=== PATIENT | female | born 1990 | race Caucasian/White ===

== ENCOUNTER 2016-11-21 07:04 | Inpatient (IN) ==
[2016-11-21] MEDS ORDERED: *HR* Morphine 2 MG/ML SYRINGE IVP ONE ×2 (07:25→09:30)
[2016-11-21] MEDS ORDERED: Ondansetron 4 MG/2 ML VIAL IVP ONE (07:25)
[2016-11-21] MEDS ORDERED: 0.9 % Sodium Chloride 1,000 ML IVC ONE (07:25)
[2016-11-21] MEDS ORDERED: Ketorolac 30 MG/ML VIAL IVP ONE (07:25)
--- NOTE | 2016-11-21 07:31 | Emergency Department Note ---
Disposition Clinical Impression: Hx of intravenous drug use in remission, Bilateral pneumonia, Pleural effusion , Back pain Disposition: Admitted As Inpatient Condition: Fair Time of Disposition: 12:22 Abdominal Pain HPI - General Chief Complaint: ED Abdominal Pain Stated Complaint: RUQ Pain x3days Time Seen by Provider: 11/21/16 07:20 Source: patient, family Mode of arrival: ambulatory Limitations: no limitations Nursing Notes Reviewed: Yes Vital Signs Reviewed: Yes - History of Present Illness HPI Narrative: Patient is a 26-year-old white female, heroin addict, who presents to the emergency department with a reported 3 day history of constant sharp right flank pain which radiates around to her right abdomen, radiating level of pain as a 10 out of 10 currently. Patient's pain appears very colicky she is restless and having difficulty finding comfortable position in bed. Patient states she has had associated nausea and vomiting with this. Patient reports subjective fever and chills at home although has not taken her temperature. Patient denies any urinary symptoms no dysuria no increased frequency or urgency no hematuria or dark appearing urine. Patient does state that she has had a history of prior kidney stones, last passed a couple years ago. Patient is holding her right flank area and actually yelling out in pain on my initial assessment. Patient appears clinically dry dry lips and mucous membranes. Patient denies any bowel changes no bright red blood per rectum or tarry black stools. Patient does have track phillip in his mouth cutaneous abscess located in the left antecubital area from her heroin use. Patient states she last used 3 days ago. She denies any history of falls or trauma. Pt Subjective Complaint: abdominal pain, flank pain Onset (ago): day(s) (3) Consistency: constant Location: RUQ, RLQ, epigastric, suprapubic, R flank Pain Severity: severe Pain Scale: 10 Quality: stabbing, sharp Improves with: nothing - Related Data Home Medications Medication Instructions Recorded Confirmed No Known Home Drugs 11/21/16 11/21/16 Allergies Allergy/AdvReac Type Severity Reaction Status Date / Time No Known Allergies Allergy Verified 11/21/16 12:40 All systems ED: reviewed and negative except as stated. Constitutional: Reports: as per HPI, fever, chills Eyes: Reports: as per HPI ENT ED: Reports: as per HPI Cardiovascular: Denies: chest pain, dyspnea on exertion, orthopnea, syncope Respiratory: Denies: cough, dyspnea, hemoptysis Gastrointestinal: Reports: abdominal pain, nausea, vomiting. Denies: diarrhea, constipation, hematemesis, melena, hematochezia Genitourinary: Denies: urgency, dysuria, frequency, hematuria, discharge, abnormal menses Musculoskeletal: Reports: back pain. Denies: neck pain, arthralgia, myalgia Integumentary: Denies: rash, lesions Neurological: Denies: headache, weakness, numbness, paresthesias Endocrine: Denies: fatigue Hematological/Lymphatic: Denies: easy bleeding, easy bruising Allergic/Immunologic: Denies: urticaria Abdominal Pain PMH - Past Medical History Medical history: Reports: other (heroin abuse) Female Surgical History: Reports: no surgical history [employer] MANAGER history: Reports: no [employer] MANAGER history, other Psychiatric history: Reports: anxiety, depression - Social History Smoking status: Never smoker Alcohol use: Reports: none Drug use: Reports: IVDU Physical Exam - General Limitations: no limitations General appearance: alert, in distress, other (Patient appears uncomfortable with writhing and difficulty finding a comfortable position.) - Head Head exam: atraumatic, normocephalic - Eye Eye exam: Present: normal appearance, PERRL, EOMI - ENT ENT exam: normal oropharynx, mucous membranes dry, TM's normal bilaterally - Neck Neck exam: Present: full ROM. Absent: lymphadenopathy - Chest Chest inspection: Present: normal inspection - Respiratory Respiratory exam: Present: normal lung sounds bilaterally. Absent: wheezes, stridor - Cardiovascular Cardiovascular exam: Present: normal rhythm, tachycardia, normal heart sounds. Absent: regular rate - Abdominal Exam Abdominal exam: Present: soft, tenderness, normal bowel sounds. Absent: distention, guarding, rebound, rigidity Abdominal tenderness: Present: RUQ, RLQ, epigastrium, suprapubic - Rectal Exam Reproducer present during exam: No Rectal exam: Present: deferred - Extremities Exam Extremities exam: Present: normal inspection, full ROM - Back Exam Back exam: Present: normal inspection, CVA tenderness (R). Absent: CVA tenderness (L), paraspinal tenderness, vertebral tenderness - Neurological Exam Neurological exam: Present: alert, oriented X3, CN II-XII intact, normal gait. Absent: motor sensory deficit - Psychiatric Psychiatric exam: Present: normal affect, agitated - Skin Skin exam: Present: warm, dry (Patient with numerous track phillip and punctate cutaneous abscesses secondary to IV heroin use.) Course Course Narrative: This 26-year-old white female with history of heroin abuse, no other medical problems reported besides a remote history of kidney stones. Patient complaining of intense severe 10 out of 10 right flank pain radiating around to the right upper and lower quadrants of her abdomen. Patient denies any associated urinary symptoms no bowel changes. Patient had associated nausea and vomiting. Patient complains of subjective fevers and chills over the last 2 -3 days. At this point in time patient is having an IV established placed on monitor technician will be started on IV fluids pain meds and antiemetics for pain relief. For proceeding with full lab evaluation and care including urinalysis and test. Clinically suspect possible right renal colic secondary to kidney stone versus pyelonephritis. We will continue to observe closely. - Reevaluation(s) Reevaluation #1: Patient resting more comfortably at this time remains with a mild tachycardia. Otherwise vital signs are stable pulse ox 98% on room air. Upon review of results up to this point patient has a leukocytosis with left shift of 23,000. Urine shows trace leuks but otherwise within normal limits and some ketones. Remainder of her labs are unremarkable at this time. Patient initially sent for CT abdomen and pelvis to rule out kidney stone versus pyelonephritis considering right flank pain. CT imaging interviewed by radiology shows no evidence of pyelonephritis or kidney stone. Patient does have what appears to be a bilateral pneumonia with hilar adenopathy and questionable mass as well as pleural effusion in the right base. I went and reevaluated the patient she is resting comfortably at this time no longer having colicky pain, although does still complain of pain at the right flank right lung base area of her chest wall. Patient states when asked about any fevers or cough your upper respiratory symptoms, she states that she has not been coughing that she spelled gradually worsening shortness of breath and pain with deep breathing over the last 3 days associated with this pain she has been having. Patient denies any productive cough. We will proceed with CT of the chest with contrast for further evaluation of abnormal findings of the chest base, and I will also have the nurses obtained blood cultures and initiate IV antibiotics prior to CT. Reevaluation #2: Patient remains hemodynamically stable with stable blood pressure and no sign of respiratory distress with oxygen saturations at 98% on room air. CT shows patchy multifocal pneumonia with the most consolidation visualized in the right lower lobe and lingula. Patient also has pleural effusions right greater than left. Have initiated IV antibiotics and will admit the patient for multifocal pneumonia. Vital Signs Temperature 98.7 F 11/21/16 07:05 Pulse Rate 124 11/21/16 07:05 Respiratory Rate 20 11/21/16 07:05 Blood Pressure 109/64 11/21/16 07:05 O2 Sat by Pulse Oximetry 96 11/21/16 07:05 Temperature 98.7 F 11/21/16 07:05 Pulse Rate 120 11/21/16 12:49 Respiratory Rate 16 11/21/16 13:29 Blood Pressure 119/81 11/21/16 13:29 O2 Sat by Pulse Oximetry 96 11/21/16 12:49 Oxygen Delivery Oxygen Delivery Room Air Abdominal Pain - MDM Narrative Medical decision making narrative: Patient is a 26-year-old white female with a history of IV drug abuse, who presented to the emergency department originally with complaints of severe right -sided flank pain radiating around to her right upper quadrant associated with reported fevers at home with chills, nausea and vomiting with a prior history of kidney stones. Patient was tachycardic on arrival but stable blood pressure and no signs of respiratory distress. Patient was maintained on a monitor technician continuous pulse ox IV saline well was established and IV fluids were initiated patient's labs were drawn and sent urine was obtained and patient was sent for CT do not study. Patient's labs show significant leukocytosis with left shift, otherwise H&H is stable. Urinalysis showed small leuks but no nitrates, no finding for urinary tract infection. CT scanning and it up showing moderate right pleural effusion with multifocal bibasilar consolidation questionable mass from what they could see on the abdominal pelvis CT. Patient remained tachycardic despite IV fluid administration and continues to complain of significant right sided back pain with deep breathing. Due to symptoms and ongoing tachycardia patient had continued IV fluids, blood cultures and antibiotics initiated and was sent for CT to rule out PE and better evaluate pneumonia and pleural effusions. She has remained with a stable blood pressure throughout her ED course and no signs of respiratory distress at a time during her ED care. IV antibiotics are infusing. CT was negative for PE but does show a bilateral pneumonia with bilateral pleural effusions, right greater than left. Due to patient's ongoing pain, nausea and vomiting we will admit her for further evaluation, IV antibiotics and respiratory management. Abdomen/Pelvis CT 11/21/16 08:44 IMPRESSION: No acute noncontrast abnormality of the abdomen or pelvis. Moderate right pleural effusion with multifocal bibasilar consolidation, some which is masslike. There is also moderate right hilar and mediastinal adenopathy. The findings are most suggestive of pneumonia most compatible with pneumonia. Follow-up to complete resolution is recommended to exclude the possibility of neoplasm. D/ / Karen Quezada Cha, MD / Karen Quezada Cha, MD Interpreting Provider: Karen Quezada Cha, MD Chest CT 11/21/16 09:59 IMPRESSION: Trace left and moderate right pleural effusion as above with multifocal bilateral patchy airspace disease with areas of consolidation within the right lower lobe and lingula. Findings are most compatible with pneumonia. Follow-up to resolution is recommended. Mediastinal and bilateral hilar adenopathy, likely reactive. Again, follow-up is recommended. D/ / Karen Quezada Cha, MD / Karen Quezada Cha, MD Interpreting Provider: Karen Quezada Cha, MD - Medical Records Medical records reviewed: Yes I reviewed the patient's medical records. - Lab Data Lab results reviewed: Yes I reviewed the patient's lab results. 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 # 0.2 (0.0-1.3) K/mcL Platelet Estimate Normal (Normal) Sodium 132 L (136-145) mEq/L Potassium 4.1 (3.5-4.5) mEq/L Chloride 96 L (98-109) mEq/L Carbon Dioxide 27 (19-29) mEq/L BUN 14 (7-20) mg/dL Creatinine 0.83 (0.57-1.11) mg/dL Est GFR ( Amer) > 60 (> 60) Est GFR (Non-Af Amer) > 60 (> 60) BUN/Creatinine Ratio 17 (6-26) Glucose 141 H (70-99) mg/dL Calculated Osmolality 277 L (280-300) Lactic Acid (0.5-2.2) mmol/L Calcium 10.2 (8.6-10.8) mg/dL Total Bilirubin 1.1 (0.2-1.2) mg/dL Direct Bilirubin 0.7 H (0.0-0.5) mg/dL Indirect Bilirubin 0.4 (0.0-1.2) mg/dL AST 14 (5-34) Units/L ALT 10 (0-55) Units/L Alkaline Phosphatase 88 (38-126) Units/L Serum Total Protein 8.0 (6.0-8.3) g/dL Albumin 2.9 L (3.5-5.0) g/dL Globulin 5.1 H (2.4-3.5) g/dL Albumin/Globulin Ratio 0.6 L (1.1-2.2) Lipase < 4 L (8-78) Units/L Beta HCG, Quant < 1 (0-4) mIU/ml Urine Color Marion A (Yellow) Urine Clarity Cloudy A (Clear) Urine pH 6.0 (5.0-8.0) pH Units Ur Specific [place] > 1.030 H (1.010-1.025) Urine Protein 100 H (Neg-Trace) mg/dL Urine Glucose (UA) Normal (Normal) mg/dL Urine Ketones Trace H (Negative) mg/dL Urine Blood Negative (Negative) Urine Nitrite Negative (Negative) Urine Bilirubin Small H (Negative) Urine Urobilinogen Normal (Normal) mg/dL Ur Leukocyte Esterase Moderate H (Negative) Urine Microscopic RBC 0-3 (0-3) per hpf Urine Microscopic WBC 50-100 H (0-3) per hpf Ur Squamous Epith Cells Many H (None-Few) per lpf Urine Bacteria Few (None-Few) per hpf Hyaline Casts Test Not Performed Urine Mucus Many H (Few) Urine Yeast Test Not Performed Ur Culture Indicated? YES A (NO) 11/21/16 Range/Units 11:04 WBC (4.3-11.1) K/mcL RBC (3.82-4.97) M/mcL Hgb (11.5-15.4) g/dL Hct (35.3-44.9) % MCV (83.0-100.0) fL MCH (28.0-33.3) pg MCHC (31.6-35.5) g/dL RDW (11.5-14.5) % Plt Count (140-400) K/mcL MPV (9.4-12.4) fL Seg Neutrophils % % Band Neutrophils % (0-4) % Lymphocytes % Monocytes % % Neutrophils # (1.6-8.9) K/mcL Lymphocytes # Monocytes # (0.0-1.3) K/mcL Platelet Estimate (Normal) Sodium (136-145) mEq/L Potassium (3.5-4.5) mEq/L Chloride (98-109) mEq/L Carbon Dioxide (19-29) mEq/L BUN (7-20) mg/dL Creatinine (0.57-1.11) mg/dL Est GFR ( Amer) (> 60) Est GFR (Non-Af Amer) (> 60) BUN/Creatinine Ratio (6-26) Glucose (70-99) mg/dL Calculated Osmolality (280-300) Lactic Acid 1.0 (0.5-2.2) mmol/L Calcium (8.6-10.8) mg/dL Total Bilirubin (0.2-1.2) mg/dL Direct Bilirubin (0.0-0.5) mg/dL Indirect Bilirubin (0.0-1.2) mg/dL AST (5-34) Units/L ALT (0-55) Units/L Alkaline Phosphatase (38-126) Units/L Serum Total Protein (6.0-8.3) g/dL Albumin (3.5-5.0) g/dL Globulin (2.4-3.5) g/dL Albumin/Globulin Ratio (1.1-2.2) Lipase (8-78) Units/L Beta HCG, Quant (0-4) mIU/ml Urine Color (Yellow) Urine Clarity (Clear) Urine pH (5.0-8.0) pH Units Ur Specific [place] (1.010-1.025) Urine Protein (Neg-Trace) mg/dL Urine Glucose (UA) (Normal) mg/dL Urine Ketones (Negative) mg/dL Urine Blood (Negative) Urine Nitrite (Negative) Urine Bilirubin (Negative) Urine Urobilinogen (Normal) mg/dL Ur Leukocyte Esterase (Negative) Urine Microscopic RBC (0-3) per hpf Urine Microscopic WBC (0-3) per hpf Ur Squamous Epith Cells (None-Few) per lpf Urine Bacteria (None-Few) per hpf Hyaline Casts Urine Mucus (Few) Urine Yeast Ur Culture Indicated? (NO) - Radiology Data Radiology results reviewed: Yes I reviewed the patient's radiology results.
[2016-11-21 07:50] LABS: Hematocrit 34.9 % (35.3-44.9); Mean Corpuscular HGB Conc 31.5 g/dL (31.6-35.5); Mean Corpuscular Hemoglobin 24.9 pg (28.0-33.3); Mean Platelet Volume 8.8 fL (9.4-12.4); Platelet Count 315 K/mcL (140-400); Red Blood Count 4.42 M/mcL (3.82-4.97); Red Cell Distribution Width 14.3 % (11.5-14.5)
[2016-11-21 08:01] LABS: Alanine Aminotransferase 10 Units/L (0-55); Albumin 2.9 g/dL (3.5-5.0); Albumin/Globulin Ratio 0.6 (1.1-2.2); Alkaline Phosphatase 88 Units/L (38-126); Aspartate Amino Transferase 14 Units/L (5-34); BUN/Creatinine Ratio 17 (6-26); Bilirubin,Direct 0.7 mg/dL (0.0-0.5); Bilirubin,Indirect 0.4 mg/dL (0.0-1.2); Bilirubin,Total 1.1 mg/dL (0.2-1.2); Blood Urea Nitrogen 14 mg/dL (7-20); Calcium 10.2 mg/dL (8.6-10.8); Carbon Dioxide 27 mEq/L (19-29); Chloride 96 mEq/L (98-109); Globulin 5.1 g/dL (2.4-3.5); Glucose 141 mg/dL (70-99); Lipase < 4 Units/L (8-78); Osmolality,Calculated 277 (280-300); Potassium 4.1 mEq/L (3.5-4.5); Sodium 132 mEq/L (136-145); eGFR For African Americans > 60 (> 60); eGFR For Non-African Americans > 60 (> 60)
[2016-11-21 08:19] LABS: Monocytes # 0.2 K/mcL (0.0-1.3); Neutrophils # 23.1 K/mcL (1.6-8.9); Platelet Estimate Normal (Normal)
[2016-11-21 09:45] LABS: Bilirubin,Urine Small (Negative); Blood,Urine Negative (Negative); Clarity,Urine Cloudy (Clear); Color,Urine Orange (Yellow); Glucose,Urine (UA) Normal (Normal); Ketones,Urine Trace mg/dL (Negative); Leukocyte Esterase,Urine Moderate (Negative); Nitrite,Urine Negative (Negative); Protein,Urine 100 mg/dL (Neg-Trace); Specific Gravity,Urine > 1.030 (1.010-1.025); Urobilinogen,Urine Normal (Normal)
[2016-11-21 09:49] LABS: Bacteria,Urine Few per hpf (None-Few); RBC,Urine 0-3 per hpf (0-3); Squamous Epithelial Cell,Urine Many per lpf (None-Few); WBC,Urine 50-100 per hpf (0-3)
[2016-11-21] MEDS ORDERED: Azithromycin 500 MG in D5% in Water 250 ML IVPB ONE (10:00)
[2016-11-21] MEDS ORDERED: Vancomycin 1,000 MG in D5% in Water 250 ML IVPB ONE (10:01)
[2016-11-21 10:13] LABS: Mucus,Urine Many (Few)
--- NOTE | 2016-11-21 12:46 | Internal Med History&Physical ---
Date of Encounter: 11/21/16 Time of Encounter: 12:43 Internal Medicine - H&P: HPI Chief complaint: flank pain Admitted From: Home Plans for Post Hospital Care: Home History of present illness: Ms. Montez is a 26 year old female , heroin addict, who presents to the emergency department with a reported 3 day history of constant sharp right flank pain which radiates around to her right abdomen, radiating level of pain as a 10 out of 10. Patient states she has had associated nausea and vomiting with this. Patient reports subjective fever and chills at home although has not taken her temperature. Patient denies any urinary symptoms no dysuria no increased frequency or urgency no hematuria or dark appearing urine. Patient does state that she has had a history of prior kidney stones, last passed a couple years ago. Patient denies any bowel changes no bright red blood per rectum or tarry black stools. Patient states she last used 3 days ago. She denies any history of falls or trauma. Past Med Surg Social Fam HX - Past Medical History Medical history: other (heroin abuse) Psychiatric history: anxiety, depression - Past Surgical History Surgical History: no surgical history - Social History Smoking Status: Never smoker Smokeless Tobacco Status: No Alcohol use: none Drug use: IVDU - Family History Maternal Grandfather Hx Family Cancer: Yes (pancreatic) Internal Medicine - H&P: Meds No Known Home Drugs 11/21/16 [History] Allergies No Known Allergies Allergy (Verified 11/21/16 12:40) All Systems PM: A 10-system review of systems was performed and is negative for pertinent findings except as documented above in the HPI. - Constitutional Vitals: Temp Pulse Resp BP Pulse Ox 98.7 F 115 18 109/51 98 11/21/16 07:05 11/21/16 11:49 11/21/16 11:49 11/21/16 11:49 11/21/16 11:49 Internal Med - H&P Results - Labs CBC & Chem 7: 11/21/16 07:35 11/21/16 07:35
[2016-11-21] MEDS ORDERED: *HR* HYDROmorphone 20 MG/20 ML PCA IVC PRN (13:52)
[2016-11-21] MEDS ORDERED: Naloxone 0.4 MG/ML INJ IVP PRN (13:52)
[2016-11-21] MEDS ORDERED: Ondansetron 4 MG/2 ML VIAL IVP PRN (13:52)
[2016-11-21] MEDS ORDERED: *HR* HYDROmorphone (PF) 1 MG/ML SYRINGE IVP ONE (13:52)
[2016-11-21] MEDS ORDERED: Sennosides 8.6 MG TABLET PO PRN (13:52)
--- NOTE | 2016-11-21 14:21 | Internal Med History&Physical ---
<Amy Miranda - Last Filed: 11/21/16 15:05> Date of Encounter: 11/21/16 Time of Encounter: 14:19 Assessment and Plan (1) Sepsis Current visit: Yes Status: Acute Patient is tachycardic, tachypneic, and has a white blood cell count 23 Qualifiers: Sepsis type: sepsis due to unspecified organism Qualified Code(s): A41.9 - Sepsis, unspecified organism (2) Bilateral pneumonia Current visit: Yes Status: Acute right lower lobe and lingula respiratory infection panel Zosyn, Levaquin, and vancomycin Duonebs q6H JAX Patient is clinically very dry. 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 Montez is a 26 year old female, known IV heroin user, who presents to the emergency department with a one-week history of right sided chest/right upper quadrant/back pain. She states this pain is a 10 out of 10. She states that she had a cough 5 days ago but it went away and then this pain came which was so severe that she laid in bed for 3 days not doing anything because of the pain. Pain is made worse by taking a deep breath or movement. She has been nauseous and been throwing up, states she has not been able to keep anything down for 3 days. Minimal fluids have been kept down. She states that she will wake up screaming in pain like she was going through withdrawals but states that she was not going through withdrawals. She also states that she woke up drenched in sweat. Past medical history of pyelonephritis, does not take any medications on a daily basis. Tachycardic and tachypneic upon arrival to the ED. White blood cell count of 23.3, she is clinically dry. Chest CT shows multifocal bilateral patchy airspace disease with areas of consolidation within the right lower lobe and lingula with trace left and moderate right pleural effusion. Also mediastinal and bilateral hilar adenopathy, likely reactive. CT of abdomen/pelvis normal. Patient states last used IV heroin 2 days ago. Past Med Surg Social Fam HX - Past Medical History Medical history: other (heroin abuse) Psychiatric history: anxiety, depression - Past Surgical History Surgical History: no surgical history - Social History Smoking Status: Never smoker Smokeless Tobacco Status: No Alcohol use: none Drug use: IVDU - Family History Maternal Grandfather Hx Family Cancer: Yes (pancreatic) Internal Medicine - H&P: Meds No Known Home Drugs 11/21/16 [History] Allergies No Known Allergies Allergy (Verified 11/21/16 12:40) All Systems PM: A 10-system review of systems was performed and is negative for pertinent findings except as documented above in the HPI. - Constitutional Constitutional: anorexia, excessive sweating, night sweats, no chills, no weakness - EENT Eyes: blurry vision (Only when pain is very severe) Ears: no ear pain Nose, mouth and throat: no sore throat - Cardiovascular Cardiovascular ROS IM: chest pain, diaphoresis, dyspnea - Respiratory Respiratory: dyspnea, pain on inspiration - Gastrointestinal Gastrointestinal: nausea, vomiting, no diarrhea - Genitourinary Genitourinary: no dysuria, no urinary frequency, no urinary hesitancy, no urinary urgency - Musculoskeletal Musculoskeletal ROS IM: back pain, other (Leg pain) - Integumentary Integumentary IM: no rash - Neurological Neurological ROS: no numbness, no weakness - Constitutional Vitals: Temp Pulse Resp BP Pulse Ox 98.7 F 120 16 119/81 96 11/21/16 07:05 11/21/16 12:49 11/21/16 13:29 11/21/16 13:29 11/21/16 12:49 General appearance: Present: mild distress, A&O X 3, answers questions appropriately - Head Head exam: Present: atraumatic, normocephalic Additional comments: Flushing of cheeks - Eye Eye exam: Present: PERRL, conjuntiva pink, sclera anicteric Pupils: Present: PERRL - ENT ENT exam: Present: mucous membranes dry - Neck Neck exam general surgery: Present: supple - Respiratory Respiratory exam: Present: decreased breath sounds (Due to patient effort), tachypnea - Cardiovascular Cardiovascular exam: Present: RRR, +S1, +S2, tachycardia - GI/Abdominal GI/Abdominal exam: Present: soft, no peritoneal signs. Absent: tenderness - Extremities Exam Extremities exam: Present: warm. Absent: pedal edema, tenderness - Neurological Exam Neurological exam: Present: alert, CN II-XII intact, oriented X3, no focal deficits - Skin Additional comments: tract kartik in L antecubital, flushed cheeks and chest Internal Med - H&P Results - Labs CBC & Chem 7: 11/21/16 07:35 11/21/16 07:35 <Sohail Davis - Last Filed: 11/21/16 15:35> Date of Encounter: 11/21/16 Assessment and Plan (1) Bilateral pneumonia Current visit: Yes Status: Suspected Qualifiers: Pneumonia type: due to Pneumococcus Lung location: lower lobe of lung Qualified Code(s): J13 - Pneumonia due to Streptococcus pneumoniae (2) Pleural effusion Current visit: Yes Status: Acute (3) Sepsis Current visit: Yes Status: Acute Qualifiers: Sepsis type: sepsis due to unspecified organism Qualified Code(s): A41.9 - Sepsis, unspecified organism (4) IV drug user Current visit: Yes Status: Chronic (5) Heroin abuse Current visit: Yes Status: Chronic Pain control and withdrawal management. Internal Medicine - H&P: HPI History of present illness: Ms. Montez is a 26 year old female All Systems PM: A 10-system review of systems was performed and is negative for pertinent findings except as documented above in the HPI. - Constitutional Vitals: Temp Pulse Resp BP Pulse Ox 98.9 F 134 16 104/69 95 11/21/16 14:21 11/21/16 14:21 11/21/16 14:21 11/21/16 14:21 11/21/16 14:21 Internal Med - H&P Results - Labs CBC & Chem 7: 11/21/16 07:35 11/21/16 07:35 - Attending Attestation I examined this patient and my medical decision-making was reviewed with the Resident Physician on 11/21/16. I agree with the documented findings, disposition and treatment plan as described except to the extent set forth below. Ms. Montez is 26 y/o heroin user presented to ED with 3 day history of R side pain. Pain came on suddenly and as been associated with dyspnea and tachycardia. Pt stated she has had fever (not documented) and night sweats. No prior hx of pulmonary issues. No cardiac issues. Only history is a previous pyelonephritis. Exam Alert. Restless and in distress from pain Mucus membranes dry Heart tachy and regular Lungs diminished R base. No wheeze. Abd soft and nontender No edema I/P 1. Sepsis due to pneumonia - differential includes PE and other processes (i.e lymphoma). IV abx and supportive care 2. Heroin user Further diagnoses and plan as above.
[2016-11-21] MEDS ORDERED: Ipratropium/Albuterol Neb 3 ML IH SCH (16:00)
[2016-11-21] MEDS: Piperacillin/Tazobactam 3.375 GM in D5% in Water (Mini-Bag+) 100 ML IVPB SCH ×2 (16:13→16:14)
[2016-11-21] MEDS: Vancomycin 1,000 MG in D5% in Water 250 ML IVPB SCH (16:22)
[2016-11-21] MEDS: 0.9 % Sodium Chloride 1,000 ML IVC SCH (17:26)
[2016-11-21] MEDS: Ketorolac 30 MG/ML VIAL IVP PRN (17:30)
[2016-11-21] MEDS: Ipratropium/Albuterol Neb 3 ML IH SCH ×2 (17:40→21:10)
[2016-11-21] MEDS ORDERED: Vancomycin 1,000 MG in D5% in Water 250 ML IVPB SCH (18:00)
[2016-11-21] MEDS: Levofloxacin 750 MG/150 ML 750 MG/150 ML BAG IVPB SCH (21:48)
[2016-11-21] MEDS: GuaiFENesin/Codeine Oral Soln 5 ML UDC PO PRN (21:48)
[2016-11-22] MEDS: Vancomycin 1,000 MG in D5% in Water 250 ML IVPB SCH ×2 (00:43→15:22)
[2016-11-22] MEDS: Piperacillin/Tazobactam 3.375 GM in D5% in Water (Mini-Bag+) 100 ML IVPB SCH ×3 (02:39→18:28)
[2016-11-22] MEDS: 0.9 % Sodium Chloride 1,000 ML IVC SCH ×3 (02:40→21:20)
[2016-11-22 04:31] LABS: Hematocrit 30.3 % (35.3-44.9); Hemoglobin 9.5 g/dL (11.5-15.4); Mean Corpuscular HGB Conc 31.4 g/dL (31.6-35.5); Mean Corpuscular Volume 79.7 fL (83.0-100.0); Mean Platelet Volume 9.5 fL (9.4-12.4); Monocytes # 1.1 K/mcL (0.0-1.3); Platelet Count 280 K/mcL (140-400); Red Cell Distribution Width 14.4 % (11.5-14.5)
[2016-11-22 04:50] LABS: Alanine Aminotransferase 8 Units/L (0-55); Albumin/Globulin Ratio 0.5 (1.1-2.2); Alkaline Phosphatase 70 Units/L (38-126); Aspartate Amino Transferase 12 Units/L (5-34); BUN/Creatinine Ratio 18 (6-26); Bilirubin,Total 0.6 mg/dL (0.2-1.2); Blood Urea Nitrogen 15 mg/dL (7-20); Carbon Dioxide 22 mEq/L (19-29); Chloride 99 mEq/L (98-109); Globulin 4.1 g/dL (2.4-3.5); Glucose 117 mg/dL (70-99); Magnesium 1.4 mg/dL (1.6-2.6); Osmolality,Calculated 270 (280-300); Phosphorous 1.4 mg/dL (2.3-4.7); Potassium 3.7 mEq/L (3.5-4.5); Sodium 129 mEq/L (136-145); eGFR For African Americans > 60 (> 60); eGFR For Non-African Americans > 60 (> 60)
[2016-11-22 04:52] LABS: Calcium 8.3 mg/dL (8.6-10.8); Total Protein 6.1 g/dL (6.0-8.3)
[2016-11-22] MEDS ORDERED: Ipratropium/Albuterol Neb 3 ML IH STA (05:01)
[2016-11-22 05:02] LABS: Lymphocytes # 0.7 K/mcL (0.6-4.6); Neutrophils # 16.2 K/mcL (1.6-8.9); Platelet Estimate Normal (Normal)
[2016-11-22 05:09] LABS: Amphetamine Screen,Urine Positive ng/mL (Cutoff=1000); Barbiturate Screen,Urine Negative ng/mL (Cutoff=200); Benzodiazepines Screen,Urine Positive ng/mL (Cutoff=200); Cannabinoid Screen,Urine Negative ng/mL (Cutoff = 50); Cocaine Screen,Urine Positive ng/mL (Cutoff= 300); Opiate Screen,Urine Positive ng/mL (Cutoff=300); Phencyclidine Screen,Urine Negative ng/mL (Cutoff=25)
[2016-11-22] MEDS ORDERED: Calcium Gluconate 1,000 MG in D5% in Water 100 ML IVPB STA (05:09)
[2016-11-22] MEDS ORDERED: Sodium Phosphate 30 MMOL in D5% in Water 100 ML IVPB ONE (05:09)
[2016-11-22] MEDS ORDERED: Magnesium Sulfate 2 GM in D5% in Water 100 ML IVPB STA (05:09)
--- NOTE | 2016-11-22 05:15 | Event Note ---
<Todd Ruth - Last Filed: 11/22/16 05:36> Date of Encounter: 11/22/16 Time of Encounter: 05:00 -Received a page that patient is having trouble breathing, oxygen stats are 80% , HR 140's, BP 104/51. -Orders placed including bipap, ABG, replacement of electrolytes, albumin. -Went to assess the patient. Male (boyfriend?) in the bed, laying with the patient. She is fully awake, answering questions appropriately, not SOB, denies CP, non lethargic. Biggest and only complaint is pain medication. 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 -Patient is known heroin addict. Concern that the male in her room might be giving patient drugs. -Patient is stable, not in acute respiratory distress. Was sleeping comfortably early this morning. Plan -Cancelled orders-bipap, ABG, transfer to -Continue with electrolyte replacement <Roney Saucedois - Last Filed: 11/23/16 23:27> Date of Encounter: 11/22/16 My signature below is to certify that this patient is under my care and that I, or the Resident Physician working with me (Dr. Ruth), has had a face-to- face encounter with this patient. My medical decision-making was reviewed with the Resident Physician, Dr. Todd Ruth. Cumulative medical records, laboratory and radiographic database was reviewed, considered and discussed. I agree with the documented findings, disposition and treatment plan as described except to the extent set forth below. Orders written.
[2016-11-22] MEDS: Ipratropium/Albuterol Neb 3 ML IH SCH ×4 (05:54→22:20)
[2016-11-22] MEDS ORDERED: *HR* Enoxaparin 40 MG/0.4 ML SYRINGE SQ SCH (06:00)
[2016-11-22] MEDS: GuaiFENesin/Codeine Oral Soln 5 ML UDC PO PRN ×3 (09:48→18:28)
[2016-11-22] MEDS: Levofloxacin 750 MG/150 ML 750 MG/150 ML BAG IVPB SCH (09:48)
[2016-11-22] MEDS: *HR* HYDROmorphone 20 MG/20 ML PCA IVC PRN ×2 (11:21→15:32)
[2016-11-22] MEDS ORDERED: Levofloxacin 500 MG/100 ML 500 MG/100 ML BAG IVPB SCH (13:00)
--- NOTE | 2016-11-22 13:59 | Internal Med Progress Note ---
<Leigh Harrell - Last Filed: 11/22/16 14:59> Date of Encounter: 11/22/16 - Assessment and plan (1) Sepsis Current Visit: Yes Status: Acute Assessment and plan: Patient has Resp>20, HR>100, fever, hypotensive, elevated white count. Lactate: 1 etiology likely secondary to bilateral pneumonia. CT chest showed trace left and moderate right pleural effusion with multifocal bilateral patchy airspace disease with areas of consolidation within the right lower lobe and lingula, consistent with pneumonia. Mediastinal bilateral hilar adenopathy present as well. Legionella, S.pneumo antigen negative. Plan: IVF Blood cultures x2 pending sputum culture pending urine culture pending. RIP pending EV Echo pending continue empiric antibiotic coverage with vanc, zosyn, levaquin- Day 2. consult to pulmonology. NPO after midnight for possible bronchoscopy. Qualifiers: Sepsis type: sepsis due to unspecified organism Qualified Code(s): A41.9 - Sepsis, unspecified organism (2) Bilateral pneumonia Current Visit: Yes Status: Suspected Assessment and plan: CT chest showed trace left and moderate right pleural effusion with multifocal bilateral patchy airspace disease with areas of consolidation within the right lower lobe and lingula. Findings compatible with pneumonia. There was also bilateral mediastinal and bilateral hilar adenopathy. Plan as above. Qualifiers: Pneumonia type: due to Pneumococcus Lung location: lower lobe of lung Qualified Code(s): J13 - Pneumonia due to Streptococcus pneumoniae (3) Pleural effusion Current Visit: Yes Status: Acute Assessment and plan: Consult to IR for thoracentesis with fluid culture and analysis, check adenosine deaminase. 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 CTA negative for PE. CT abdomen/pelvis showed no acute noncontrast abnormality. Etiology likely secondary to pneumonia and pleural effusions. (5) IV drug user Current Visit: Yes Status: Chronic Assessment and plan: Patient has extensive history of IV drug use, says she uses heroin. UDS psitive for opiates, amphetamines, benzodiazepines, cocaine. patient counseled on risks of IV drug use. Plan: echo pending (6) DVT prophylaxis Current Visit: No Status: Acute Assessment and plan: heparin SQ - Subjective Interval history: 26 year old female evaluated at bedside. patient is alert and oriented x3, in mild distress from pain. She denies nausea, vomiting, diarrhea, chills. SHe says she is very tired, and is having a non productive cough. - Constitutional Vitals: Temp Pulse Resp BP Pulse Ox 100.2 F H 127 32 100/60 97 11/22/16 08:16 11/22/16 08:16 11/22/16 08:16 11/22/16 08:16 11/22/16 08:16 General appearance: Present: mild distress, A&O X 3, answers questions appropriately - Head Head exam: Present: atraumatic, normocephalic - Respiratory Respiratory exam: Present: rales, wheezes - Cardiovascular Cardiovascular exam: Present: tachycardia. Absent: systolic murmur - GI/Abdominal GI/Abdominal exam: Present: normal bowel sounds, soft, tenderness. Absent: distended Additional comments: right flank pain present. - Extremities Exam Extremities exam: Absent: cyanotic, pedal edema - Neurological Exam Neurological exam: Present: alert, oriented X3, no focal deficits - Psychiatric Psychiatric exam: Present: agitated, anxious Internal Medicine: Result - Labs CBC & Chem 7: 11/22/16 03:39 11/22/16 03:39 Labs: Short CBC 11/22/16 Range/Units 03:39 WBC 18.0 H (4.3-11.1) K/mcL Hgb 9.5 L D (11.5-15.4) g/dL Hct 30.3 L (35.3-44.9) % Plt Count 280 (140-400) K/mcL Neutrophils # 16.2 H (1.6-8.9) K/mcL BMP 11/22/16 03:39 Sodium 129 L Potassium 3.7 Chloride 99 Carbon Dioxide 22 BUN 15 Creatinine 0.85 Glucose 117 H Calcium 8.3 L D Liver Function 11/22/16 Range/Units 03:39 Total Bilirubin 0.6 (0.2-1.2) mg/dL AST 12 (5-34) Units/L ALT 8 (0-55) Units/L Alkaline Phosphatase 70 (38-126) Units/L Albumin 2.0 L D (3.5-5.0) g/dL Consult Discharge Plan - Plan Referrals: NO,PCP [Primary Care Provider] - <Sohail Davis - Last Filed: 11/22/16 17:51> Date of Encounter: 11/22/16 Time of Encounter: 15:00 - Assessment and plan (1) Bilateral pneumonia Current Visit: Yes Status: Suspected Qualifiers: Pneumonia type: due to Pneumococcus Lung location: lower lobe of lung Qualified Code(s): J13 - Pneumonia due to Streptococcus pneumoniae (2) Pleural effusion Current Visit: Yes Status: Acute (3) Sepsis Current Visit: Yes Status: Acute Qualifiers: Sepsis type: sepsis due to unspecified organism Qualified Code(s): A41.9 - Sepsis, unspecified organism (4) IV drug user Current Visit: Yes Status: Chronic (5) Heroin abuse Current Visit: Yes Status: Chronic (6) Microcytic anemia Current Visit: No Status: Chronic - Constitutional Vitals: Temp Pulse Resp BP Pulse Ox 97.7 F 112 22 103/60 95 11/22/16 16:25 11/22/16 16:25 11/22/16 16:25 11/22/16 16:25 11/22/16 16:25 Internal Medicine: Result - Labs CBC & Chem 7: 11/22/16 03:39 11/22/16 03:39 Labs: Short CBC 11/22/16 Range/Units 03:39 WBC 18.0 H (4.3-11.1) K/mcL Hgb 9.5 L D (11.5-15.4) g/dL Hct 30.3 L (35.3-44.9) % Plt Count 280 (140-400) K/mcL Neutrophils # 16.2 H (1.6-8.9) K/mcL BMP 11/22/16 11/22/16 03:39 14:12 Sodium 129 L Potassium 3.7 Chloride 99 Carbon Dioxide 22 BUN 15 Creatinine 0.85 Glucose 117 H Calcium 8.3 L D 8.1 L Liver Function 11/22/16 Range/Units 03:39 Total Bilirubin 0.6 (0.2-1.2) mg/dL AST 12 (5-34) Units/L ALT 8 (0-55) Units/L Alkaline Phosphatase 70 (38-126) Units/L Albumin 2.0 L D (3.5-5.0) g/dL - Attending Attestation I examined this patient and my medical decision-making was reviewed with the Resident Physician on 11/22/16. I agree with the documented findings, disposition and treatment plan as described except to the extent set forth below. Ms. Montez is currently admitted for acute pneumonia associated with pain and hypoxemia. She is high risk due to potential for worsening respiratory status. Ms. Montez is still having a lot of pain. She wants more pain meds if possible. She is requiring higher oxygen as well. No fever or chills since admit though she has had night sweats at home. She feels she has lost weight as well. Exam Alert. Moderate distress due to pain. Mucus membranes dry Heart reg and tachycardic Lungs diminished I/P 1. Hypoxemia 2. Pneumonia Further diagnoses and plan as above.
[2016-11-22] MEDS: Ketorolac 30 MG/ML VIAL IVP PRN ×2 (14:18→20:03)
[2016-11-22 14:35] LABS: Calcium 8.1 mg/dL (8.6-10.8); Magnesium 1.7 mg/dL (1.6-2.6)
[2016-11-22 14:38] LABS: Phosphorous 2.3 mg/dL (2.3-4.7)
--- NOTE | 2016-11-22 17:34 | Pulmonology Consult Note ---
Date of Encounter: 11/22/16 Time of Encounter: 16:45 Assessment and Plan (1) Bilateral pneumonia Current Visit: Yes Status: Acute I reviewed CT chest and there is evidence of pneumonia, right more than left and due to her history of IV drug use and this is mainly in right lower lobe, in the differential diagnosis and bronchoscopy recommended to patient and explained to her all the risk, alternatives and benefits of the procedure and she agreed to have it done. Discussed with primary team and thanks for the consult. Keep patient NPO post mid-night for the procedure. Qualifiers: Pneumonia type: due to unspecified organism Lung location: lower lobe of lung Qualified Code(s): J18.9 - Pneumonia, unspecified organism (2) Pleural effusion Current Visit: Yes Status: Acute right larger than left and this is possibly parapneumonic and she declined thoracentesis today. History of Present Illness Consult date: 11/22/16 Requesting physician: Sohail Davis Reason for consult: pneumonia Chief complaint: Right side chest and back pain History of present illness: This is a pleasant 26 year old female with known history of IV drug user who presented to [facility] emergency medicine with above complaint for about one week and she stated she has difficulty to do anything because of the pain. She has cough and chest pain mainly when she takes deep breath. She has sweating and she has difficulty to keep anything down and she has been dehydrated. She denies any previous history of TB and this is all acute. She denies any hemoptysis or wheezing. She was found to have pneumonia and pleural effusion with mediastinal and hilar adenopathy. Pulmonary consulted for evaluation for bronchoscopy. Past Med Surg Social Fam HX - Past Medical History Medical history: other (heroin abuse) Psychiatric history: anxiety, depression - Past Surgical History Surgical History: no surgical history - Social History Smoking Status: Never smoker Smokeless Tobacco Status: No Alcohol use: none Drug use: IVDU - Family History Maternal Grandfather Living Status: Still Living Hx Family Cardiac Disorders: No Hx Family Cancer: Yes (pancreatic) Hx Family Endocrine Disorder: Yes Hx Family Medical Disorders: Yes Medications and Allergies No Known Home Drugs 11/21/16 [History] Allergies No Known Allergies Allergy (Verified 11/21/16 12:40) All Systems: A 10-system review of systems was performed and is negative for pertinent findings except as documented above in the HPI. Physical Examination Vital Signs: Vital Signs, Last 4 Hours Temp Pulse Resp BP Pulse Ox 11/22/16 16:25 97.7 F 112 22 103/60 95 General appearance: lethargic, appears uncomfortable Eyes: nonicteric ENT: oropharynx dry Mallampati (class): 1 Neck: supple, no lymphadenopathy Effort: normal Inspection: normal Auscultation: bilateral: rales Percussion: right: not dull (Tender) Cardiovascular: regular rate and rhythm Gastrointestinal: normoactive bowel sounds Integumentary: rash Extremities: no cyanosis normal mental status, non-focal exam anxious Results - Laboratory Findings CBC and BMP: 11/22/16 03:39 11/22/16 03:39 Abnormal lab findings: Abnormal lab results WBC 18.0 K/mcL (4.3-11.1) H 11/22/16 03:39 RBC 3.80 M/mcL (3.82-4.97) L 11/22/16 03:39 Hgb 9.5 g/dL (11.5-15.4) L D 11/22/16 03:39 Hct 30.3 % (35.3-44.9) L 11/22/16 03:39 MCV 79.7 fL (83.0-100.0) L 11/22/16 03:39 MCH 25.0 pg (28.0-33.3) L 11/22/16 03:39 MCHC 31.4 g/dL (31.6-35.5) L 11/22/16 03:39 Band Neutrophils % 16.0 % (0-4) H 11/22/16 03:39 Neutrophils # 16.2 K/mcL (1.6-8.9) H 11/22/16 03:39 Sodium 129 mEq/L (136-145) L 11/22/16 03:39 Glucose 117 mg/dL (70-99) H 11/22/16 03:39 Calculated Osmolality 270 (280-300) L 11/22/16 03:39 Calcium 8.1 mg/dL (8.6-10.8) L 11/22/16 14:12 Direct Bilirubin 0.7 mg/dL (0.0-0.5) H 11/21/16 07:35 Albumin 2.0 g/dL (3.5-5.0) L D 11/22/16 03:39 Globulin 4.1 g/dL (2.4-3.5) H 11/22/16 03:39 Albumin/Globulin Ratio 0.5 (1.1-2.2) L 11/22/16 03:39 Lipase < 4 Units/L (8-78) L 11/21/16 07:35 Urine Color [place] (Yellow) A 11/21/16 09:03 Urine Clarity Cloudy (Clear) A 11/21/16 09:03 Ur Specific [place] > 1.030 (1.010-1.025) H 11/21/16 09:03 Urine Protein 100 mg/dL (Neg-Trace) H 11/21/16 09:03 Urine Ketones Trace mg/dL (Negative) H 11/21/16 09:03 Urine Bilirubin Small (Negative) H 11/21/16 09:03 Ur Leukocyte Esterase Moderate (Negative) H 11/21/16 09:03 Urine Microscopic WBC 50-100 per hpf (0-3) H 11/21/16 09:03 Ur Squamous Epith Cells Many per lpf (None-Few) H 11/21/16 09:03 Urine Mucus Many (Few) H 11/21/16 09:03 Ur Culture Indicated? YES (NO) A 11/21/16 09:03 Urine Opiates Screen Positive ng/mL (Zhefgt=493) H 11/21/16 09:15 Ur Amphetamines Screen Positive ng/mL (Zonxfj=2993) H 11/21/16 09:15 U Benzodiazepines Scrn Positive ng/mL (Emnpsf=864) H 11/21/16 09:15 Urine Cocaine Screen Positive ng/mL (Cutoff= 300) H 11/21/16 09:15 - Diagnostic Findings CT scan - chest: report reviewed, image reviewed - Clinical Findings Intake & Output: Intake & Output 11/22/16 11/22/16 11/22/16 07:59 15:59 23:59 Intake Total 1350 / 1350 1894 / 1894 Balance 1350 / 1350 1894 / 1894 Weight 63.9 kg Consult Discharge Plan - Plan Referrals: NO,PCP [Primary Care Provider] -
[2016-11-22] MEDS: *HR* Heparin 5,000 UNIT/ML VIAL SQ SCH (18:29)
[2016-11-22 20:28] LABS: INR 1.8; Prothrombin Time 19.4 Seconds (9.4-12.1)
[2016-11-23] MEDS: Piperacillin/Tazobactam 3.375 GM in D5% in Water (Mini-Bag+) 100 ML IVPB SCH ×3 (00:55→17:49)
[2016-11-23] MEDS: GuaiFENesin/Codeine Oral Soln 5 ML UDC PO PRN ×4 (00:56→22:38)
[2016-11-23 01:02] LABS: Ionized Calcium 1.11 mmol/L (1.15-1.35)
[2016-11-23 01:06] LABS: Basophils % 0.1 %; Eosinophils # 0.2 K/mcL (0.0-0.6); Eosinophils % 1.1 %; Hematocrit 28.3 % (35.3-44.9); Hemoglobin 8.8 g/dL (11.5-15.4); Immature Granulocytes % 0.9 % (0-4); Lymphocytes # 0.9 K/mcL (0.6-4.6); Lymphocytes % 6.6 %; Mean Corpuscular HGB Conc 31.1 g/dL (31.6-35.5); Mean Corpuscular Hemoglobin 24.9 pg (28.0-33.3); Mean Corpuscular Volume 79.9 fL (83.0-100.0); Monocytes % 8.2 %; Neutrophils # 11.6 K/mcL (1.6-8.9); Platelet Count 223 K/mcL (140-400); Red Blood Count 3.54 M/mcL (3.82-4.97); Red Cell Distribution Width 14.1 % (11.5-14.5); Segmented Neutrophils % 83.1 %
[2016-11-23 01:10] LABS: Magnesium 1.8 mg/dL (1.6-2.6); Monocytes # 1.2 K/mcL (0.0-1.3)
[2016-11-23 01:12] LABS: Phosphorous 3.7 mg/dL (2.3-4.7)
[2016-11-23 01:13] LABS: Alanine Aminotransferase 6 Units/L (0-55); Albumin/Globulin Ratio 0.5 (1.1-2.2); Alkaline Phosphatase 52 Units/L (38-126); Aspartate Amino Transferase 10 Units/L (5-34); BUN/Creatinine Ratio 12 (6-26); Bilirubin,Total 0.3 mg/dL (0.2-1.2); Blood Urea Nitrogen 8 mg/dL (7-20); Calcium 7.9 mg/dL (8.6-10.8); Carbon Dioxide 23 mEq/L (19-29); Chloride 108 mEq/L (98-109); Globulin 3.7 g/dL (2.4-3.5); Glucose 119 mg/dL (70-99); Osmolality,Calculated 283 (280-300); Potassium 3.6 mEq/L (3.5-4.5); Total Protein 5.6 g/dL (6.0-8.3); eGFR For African Americans > 60 (> 60); eGFR For Non-African Americans > 60 (> 60)
[2016-11-23 01:14] LABS: Albumin 1.9 g/dL (3.5-5.0); Sodium 137 mEq/L (136-145)
[2016-11-23 01:29] LABS: Platelet Estimate Normal (Normal); Reactive Lymphocytes Present (Not Present); Toxic Granulation Present (Not Present); Toxic Vacuolation Present (Not Present)
[2016-11-23] MEDS: Ketorolac 30 MG/ML VIAL IVP PRN ×3 (03:14→16:23)
[2016-11-23] MEDS: Vancomycin 1,000 MG in D5% in Water 250 ML IVPB SCH (03:15)
[2016-11-23] MEDS: Ipratropium/Albuterol Neb 3 ML IH SCH ×4 (04:29→21:44)
[2016-11-23] MEDS: *HR* Heparin 5,000 UNIT/ML VIAL SQ SCH ×2 (06:54→17:49)
[2016-11-23] MEDS ORDERED: Calcium Gluconate 1,000 MG in D5% in Water 100 ML IVPB ONE (08:35)
[2016-11-23] MEDS: Levofloxacin 750 MG/150 ML 750 MG/150 ML BAG IVPB SCH (09:00)
[2016-11-23] MEDS: 0.9 % Sodium Chloride 1,000 ML IVC SCH ×2 (09:01→17:50)
[2016-11-23 09:07] LABS: Adenovirus Not Detected (Not Detect); Bordetella Pertussis Not Detected (Not Detect); Chlamydophila pneumoniae Not Detected (Not Detect); Coronavirus 229E Not Detected (Not Detect); Coronavirus HKU1 Not Detected (Not Detect); Coronavirus NL63 Not Detected (Not Detect); Coronavirus OC43 Not Detected (Not Detect); Human Metapneumovirus Not Detected (Not Detect); Human Rhinovirus/Enterovirus Not Detected (Not Detect); Influenza A Subtype 2009 H1 Not Detected (Not Detect); Influenza A Untypeable Not Detected (Not Detect); Influenza B Not Detected (Not Detect); Mycoplasma pneumoniae Not Detected (Not Detect); Parainfluenza Virus 1 Not Detected (Not Detect); Parainfluenza Virus 2 Not Detected (Not Detect); Parainfluenza Virus 3 Not Detected (Not Detect); Parainfluenza Virus 4 Not Detected (Not Detect); Respiratory Syncytial Virus Not Detected (Not Detect)
--- NOTE | 2016-11-23 10:20 | ECHO - Doppler Report ---
Echocardiogram Name: Zahida Montez Date of Study: 11/22/2016 Date: 1990 Ht: 63.0 in Medical Record#: [id number] Age: 26 Wt: 140.0 lb Gender: Female BSA: 1.66 Order #: [id number] Location: [facility] Room #: 2NE29 Reading Physician: Emre Kearns DO, HARINI YE Operator Lights: Keren Zuluaga RDCS Ordering Physician: Leigh Harrell DO Primary Physician: None Indications: IVDU Impressions: LVEF 70%. Normal LV chamber size, wall thickness and function. Indeterminate diastolic function due to tachycardia. Normal right ventricular structure and function. No evidence of pulmonary hypertension. No significant valvular dysfunction. No evidence of endocarditis on this study. Recommend repeat examination as clinically indicated. Left Ventricular Wall Motion: Rest Echo Findings All wall segments showed normal motion. Findings: Study Quality * Technically adequate exam. ECG Findings * Sinus tachycardia. Left Ventricle * LVEF 70%. * Normal LV chamber size, wall thickness and function. * Indeterminate diastolic function due to tachycardia. Right Ventricle * Normal right ventricular structure and function. Left Atrium * Mildly dilated left atrium. Right Atrium * Normal right atrial size. Interatrial Septum * Interatrial septum not well evaluated. Aortic Valve * Trileaflet aortic valve with normal function. * No aortic regurgitation. * No aortic stenosis. Mitral Valve * Normal mitral valve structure and function. * No mitral regurgitation. * No mitral stenosis. Tricuspid Valve * The tricuspid valve appears mildly thickened in some views, but no definite vegetation visualized. * Trace tricuspid regurgitation. * No evidence of pulmonary hypertension. Pulmonic Valve * Normal pulmonic valve structure and function. * No pulmonic regurgitation. Pericardium * The pericardium appears normal. Aorta * Normally sized aortic root. IVC * Normal IVC dimensions and inspiratory collapse. Pulmonary Artery * Normal visualized portions of the main pulmonary artery. History Measurements: BP: 100/ 60 2D Normal Values RVIDd: 2.29 cm <2.7 cm IVSd: .70 cm 0.6 - 1.0 cm LVIDd: 4.48 cm 3.7 - 5.6 cm LVPWd: .63 cm 0.6 - 1.1 cm LVIDs: 2.24 cm 1.5 - 3.6 cm AO: 1.90 cm < 4.0 cm LA: 3.90 cm 2.0 - 4.0cm %FS: 50.00 cm >25 % LA volume: 38 Mitral Valve Peak E:1.00 m/sec Peak A:.73 m/sec E/A Ratio:1.4 Peak E' Lat Raffy:14.3 cm/s Peak E' Med Raffy:16.5 cm/s E/E' Lat Ratio:7 E/E' Med Ratio:6.1 Tricuspid Valve TV Regurg Peak Grad: 27.00mmHg TV Regurg Peak Raffy: 2.59m/sec Updated by Emre Kearns DO, EPHRAIM, HARINI, CLAIRE on 11/23/2016 10:13:33 AM electronically signed on 11/23/2016 10:14:43 AM with status of Final Wall Motion Bro: 1=Normal, 2=Hypokinesis, 3=Akinesis, 4=Dyskinesis, 5=Aneurysmal, 6=Hyperkinetic, X=Not Visualized (Blank)=Missing
[2016-11-23] MEDS: Vancomycin 1,500 MG in D5% in Water 250 ML IVPB SCH ×2 (10:55→22:38)
--- NOTE | 2016-11-23 11:21 | IR Procedure Note ---
Date of procedure: 11/23/16 Consent Obtained: Verbal consent, Written consent Timeout: Correct patient and procedure verified, Correct site verified, Time out performed, Skin prep completed Local anesthetic: Lidocaine 1% Indications: pleural effusion Procedure Performed: R thoracentesis Site/Technique: R Results/Findings: multiloculated R pleural effusion; 210 mL turbid fluid aspirated Estimated blood loss (cc): 1 Complications: None; Tolerated procedure well Post Procedure Treatment Plan: CXR
--- NOTE | 2016-11-23 15:39 | Internal Med Progress Note ---
<Leigh Harrell - Last Filed: 11/23/16 16:01> Date of Encounter: 11/23/16 Time of Encounter: 10:00 - Assessment and plan (1) Sepsis Current Visit: Yes Status: Acute Assessment and plan: Patient has Resp>20, HR>100, fever, hypotensive, elevated white count. Lactate: 1 etiology likely secondary to bilateral pneumonia. CT chest showed trace left and moderate right pleural effusion with multifocal bilateral patchy airspace disease with areas of consolidation within the right lower lobe and lingula, consistent with pneumonia. Mediastinal bilateral hilar adenopathy present as well. Legionella, S.pneumo antigen negative. prelim blood cultures show no growth. respiratory infection panel negative. Echo normal. urine culture inconclusive. s/p right thoracentesis with 210 ml pleural fluid removed, sent for analysis. Plan: IVF sputum culture pending continue empiric antibiotic coverage with vanc, zosyn, levaquin- Day 3. will de escalate antibiotics tomorrow to vanc and levaquin. consult to pulmonology. NPO after midnight for possible bronchoscopy tomorrow. patient refused bronch today because she has pain in her throat. Qualifiers: Sepsis type: sepsis due to unspecified organism Qualified Code(s): A41.9 - Sepsis, unspecified organism (2) Bilateral pneumonia Current Visit: Yes Status: Acute Assessment and plan: CT chest showed trace left and moderate right pleural effusion with multifocal bilateral patchy airspace disease with areas of consolidation within the right lower lobe and lingula. Findings compatible with pneumonia. There was also bilateral mediastinal and bilateral hilar adenopathy. Plan as above. Qualifiers: Pneumonia type: due to unspecified organism Lung location: lower lobe of lung Qualified Code(s): J18.9 - Pneumonia, unspecified organism (3) Pleural effusion Current Visit: Yes Status: Acute Assessment and plan: S/p right thoracentesis today with 210ml turbid fluid aspirated. pleural effusions were multiloculated. patient tolerated procedure well. (4) Right flank pain Current Visit: Yes Status: Acute Assessment and plan: patient has dilaudid CARPENTER ROUGH in place. CTA negative for PE. CT abdomen/pelvis showed no acute noncontrast abnormality. Etiology likely secondary to pneumonia and pleural effusions. (5) IV drug user Current Visit: Yes Status: Chronic Assessment and plan: Patient has extensive history of IV drug use, says she uses heroin. UDS psitive for opiates, amphetamines, benzodiazepines, cocaine. patient counseled on risks of IV drug use. Echo showed LVEF 70%, normal LV chamber size, wall thickness, and function. indeterminate diastolic function due to tachycardia, normal RV structure and function, no evidence of pulmonary hypertension, no significant valvular dysfunction, no evidence of endocarditis. (6) DVT prophylaxis Current Visit: No Status: Acute Assessment and plan: heparin SQ - Subjective Interval history: 26 year old female evaluated at bedside. patient is alert and oriented x3, in mild distress from pain and coughing. she denies nausea, vomiting, diarrhea. She states that her coughing is improved. - Constitutional Vitals: Temp Pulse Resp BP Pulse Ox 98.5 F 109 17 99/69 95 11/23/16 15:00 11/23/16 15:00 11/23/16 15:00 11/23/16 15:00 11/23/16 15:00 General appearance: Present: mild distress, A&O X 3, answers questions appropriately - Head Head exam: Present: atraumatic, normocephalic - Neck Neck exam general surgery: Present: supple, trachea midline - Respiratory Additional comments: decreased breath sounds on right side. right basilar rales and rhonchi present. - Cardiovascular Cardiovascular exam: Present: tachycardia - GI/Abdominal GI/Abdominal exam: Present: normal bowel sounds, soft. Absent: distended, tenderness - Extremities Exam Extremities exam: Absent: cyanotic, pedal edema Additional comments: track phillip present on arms. - Neurological Exam Neurological exam: Present: alert, oriented X3, no focal deficits - Psychiatric Psychiatric exam: Present: agitated, anxious Internal Medicine: Result - Labs CBC & Chem 7: 11/23/16 00:49 11/23/16 00:49 Labs: Short CBC 11/23/16 Range/Units 00:49 WBC 14.0 H (4.3-11.1) K/mcL Hgb 8.8 L (11.5-15.4) g/dL Hct 28.3 L (35.3-44.9) % Plt Count 223 (140-400) K/mcL Neutrophils # 11.6 H (1.6-8.9) K/mcL BMP 11/23/16 00:49 Sodium 137 D Potassium 3.6 Chloride 108 Carbon Dioxide 23 BUN 8 Creatinine 0.67 Glucose 119 H Calcium 7.9 L Liver Function 11/23/16 Range/Units 00:49 Total Bilirubin 0.3 (0.2-1.2) mg/dL AST 10 (5-34) Units/L ALT 6 (0-55) Units/L Alkaline Phosphatase 52 (38-126) Units/L Albumin 1.9 L (3.5-5.0) g/dL - ABG Interpretation ABG results: PT/INR, D-dimer PT 19.4 Seconds (9.4-12.1) H 11/22/16 20:10 - Impressions Impressions Thoracentesis Ultrasound 11/23/16 00:00 IMPRESSION: Successful ultrasound guided right thoracentesis. The right pleural effusion is complex and multiloculated appearance. D/ / Tyrell Santiago MD / Tyrell Santiago MD Interpreting Provider: Tyrell Santiago MD Chest X-Ray 11/23/16 10:52 IMPRESSION: In comparison to CT from 11/21/2016, a multiloculated right pleural effusion has increased in size. No pneumothorax following right thoracentesis. Small left pleural effusion with left basilar atelectasis and/or consolidation. D/ / 11/23/2016 11:20:09 Tyrell Santiago MD / ortega Interpreting Provider: Tyrell Santiago MD Consult Discharge Plan - Plan Referrals: NO,PCP [Primary Care Provider] - <Sohail Davis - Last Filed: 11/23/16 18:11> Date of Encounter: 11/23/16 - Assessment and plan (1) Bilateral pneumonia Current Visit: Yes Status: Suspected Qualifiers: Pneumonia type: aspiration pneumonia Aspiration pneumonia type: due to gastric secretions Lung location: lower lobe of lung Qualified Code(s): J69.0 - Pneumonitis due to inhalation of food and vomit (2) Pleural effusion Current Visit: Yes Status: Acute (3) Sepsis Current Visit: Yes Status: Acute Qualifiers: Sepsis type: sepsis due to unspecified organism Qualified Code(s): A41.9 - Sepsis, unspecified organism (4) IV drug user Current Visit: Yes Status: Chronic (5) Heroin abuse Current Visit: Yes Status: Chronic (6) Microcytic anemia Current Visit: No Status: Chronic - Constitutional Vitals: Temp Pulse Resp BP Pulse Ox 98.5 F 109 17 99/69 95 11/23/16 15:00 11/23/16 15:00 11/23/16 15:00 11/23/16 15:00 11/23/16 15:00 Internal Medicine: Result - Labs CBC & Chem 7: 11/23/16 00:49 11/23/16 00:49 Labs: Short CBC 11/23/16 Range/Units 00:49 WBC 14.0 H (4.3-11.1) K/mcL Hgb 8.8 L (11.5-15.4) g/dL Hct 28.3 L (35.3-44.9) % Plt Count 223 (140-400) K/mcL Neutrophils # 11.6 H (1.6-8.9) K/mcL BMP 11/23/16 00:49 Sodium 137 D Potassium 3.6 Chloride 108 Carbon Dioxide 23 BUN 8 Creatinine 0.67 Glucose 119 H Calcium 7.9 L Liver Function 11/23/16 Range/Units 00:49 Total Bilirubin 0.3 (0.2-1.2) mg/dL AST 10 (5-34) Units/L ALT 6 (0-55) Units/L Alkaline Phosphatase 52 (38-126) Units/L Albumin 1.9 L (3.5-5.0) g/dL - ABG Interpretation ABG results: PT/INR, D-dimer PT 19.4 Seconds (9.4-12.1) H 11/22/16 20:10 - Impressions Impressions Thoracentesis Ultrasound 11/23/16 00:00 IMPRESSION: Successful ultrasound guided right thoracentesis. The right pleural effusion is complex and multiloculated appearance. D/ / Tyrell Santiago MD / Tyrell Santiago MD Interpreting Provider: Tyrell Santiago MD Chest X-Ray 11/23/16 10:52 IMPRESSION: In comparison to CT from 11/21/2016, a multiloculated right pleural effusion has increased in size. No pneumothorax following right thoracentesis. Small left pleural effusion with left basilar atelectasis and/or consolidation. D/ / 11/23/2016 11:20:09 Tyrell Santiago MD / ortega Interpreting Provider: Tyrell Santiago MD - Attending Attestation I examined this patient and my medical decision-making was reviewed with the Resident Physician on 11/23/16. I agree with the documented findings, disposition and treatment plan as described except to the extent set forth below. Ms. Montez is currently admitted for acute R side pneumonia and pleural effusion. She is moderate to high risk due to potential for worsening respiratory status. Ms. Montez had thoracentesis today. Says it helped her breathing some. Still with a lot of pain. No GI symptoms. Refused bronch today. Exam Alert. Mod distress due to pain Heart tachy and regular Decreased breath sounds. I/P 1. Pneumonia 2. Pleural effusion Further diagnoses and plan as above.
[2016-11-23 16:16] LABS: Amylase,Pleural Fluid 24 Units/L (No Ref Range); Triglycerides, Pleural Fluid 28 mg/dL (No Ref Range)
[2016-11-23 16:18] LABS: Glucose,Pleural Fluid < 5 mg/dL (No Ref Range); LDH,Pleural Fluid 2302 Units/L (No Ref Range); Total Protein,Pleural Fluid 4.1 g/dL (No Ref Range)
[2016-11-23 16:23] LABS: RBC,Pleural Fluid 0.002 M/mcL
[2016-11-23] MEDS: *HR* HYDROmorphone 20 MG/20 ML PCA IVC PRN (16:31)
[2016-11-23 16:39] LABS: Appearance of Pleural Fl Hazy (Clear)
--- NOTE | 2016-11-23 16:52 | Pulmonology Progress Note ---
Date of Encounter: 11/23/16 Time of Encounter: 15:00 Assessment and Plan (1) Bilateral pneumonia Current Visit: Yes Status: Acute Patient declined bronchoscopy, and discussed with primary team. Please call if she agreed or for any questions. Qualifiers: Pneumonia type: due to unspecified organism Lung location: lower lobe of lung Qualified Code(s): J18.9 - Pneumonia, unspecified organism (2) Pleural effusion Current Visit: Yes Status: Acute s/p thoracentesis and patient is feeling better. Follow up on the result. Subjective Principal diagnosis: Pneumonia Interval history: Patient declined bronchoscopy and she felt thoracentesis has helped her Objective PUL Vital signs: Last Vital Signs Temp 98.5 F 11/23/16 15:00 Pulse 109 11/23/16 15:00 Resp 17 11/23/16 15:00 BP 99/69 11/23/16 15:00 Pulse Ox 95 11/23/16 15:00 General appearance: appears uncomfortable Eyes: nonicteric ENT: oropharynx moist Neck: supple Effort: normal Auscultation: left: clear, right: diminished breath sounds Percussion: bilateral: not dull Cardiovascular: regular rate and rhythm Gastrointestinal: normoactive bowel sounds normal mental status, non-focal exam anxious Results - Laboratory Findings CBC and BMP: 11/23/16 00:49 11/23/16 00:49 PT/INR, D-dimer PT 19.4 Seconds (9.4-12.1) H 11/22/16 20:10 Abnormal lab findings: Abnormal lab results WBC 14.0 K/mcL (4.3-11.1) H 11/23/16 00:49 RBC 3.54 M/mcL (3.82-4.97) L 11/23/16 00:49 Hgb 8.8 g/dL (11.5-15.4) L 11/23/16 00:49 Hct 28.3 % (35.3-44.9) L 11/23/16 00:49 MCV 79.9 fL (83.0-100.0) L 11/23/16 00:49 MCH 24.9 pg (28.0-33.3) L 11/23/16 00:49 MCHC 31.1 g/dL (31.6-35.5) L 11/23/16 00:49 MPV 9.0 fL (9.4-12.4) L 11/23/16 00:49 Band Neutrophils % 16.0 % (0-4) H 11/22/16 03:39 Neutrophils # 11.6 K/mcL (1.6-8.9) H 11/23/16 00:49 Reactive Lymphocytes Present (Not Present) A 11/23/16 00:49 Toxic Granulation Present (Not Present) A 11/23/16 00:49 Toxic Vacuolation Present (Not Present) A 11/23/16 00:49 PT 19.4 Seconds (9.4-12.1) H 11/22/16 20:10 Glucose 119 mg/dL (70-99) H 11/23/16 00:49 Calcium 7.9 mg/dL (8.6-10.8) L 11/23/16 00:49 Ionized Calcium 1.11 mmol/L (1.15-1.35) L 11/23/16 00:49 Direct Bilirubin 0.7 mg/dL (0.0-0.5) H 11/21/16 07:35 Serum Total Protein 5.6 g/dL (6.0-8.3) L 11/23/16 00:49 Albumin 1.9 g/dL (3.5-5.0) L 11/23/16 00:49 Globulin 3.7 g/dL (2.4-3.5) H 11/23/16 00:49 Albumin/Globulin Ratio 0.5 (1.1-2.2) L 11/23/16 00:49 Lipase < 4 Units/L (8-78) L 11/21/16 07:35 Urine Color Dorr (Yellow) A 11/21/16 09:03 Urine Clarity Cloudy (Clear) A 11/21/16 09:03 Ur Specific [place] > 1.030 (1.010-1.025) H 11/21/16 09:03 Urine Protein 100 mg/dL (Neg-Trace) H 11/21/16 09:03 Urine Ketones Trace mg/dL (Negative) H 11/21/16 09:03 Urine Bilirubin Small (Negative) H 11/21/16 09:03 Ur Leukocyte Esterase Moderate (Negative) H 11/21/16 09:03 Urine Microscopic WBC 50-100 per hpf (0-3) H 11/21/16 09:03 Ur Squamous Epith Cells Many per lpf (None-Few) H 11/21/16 09:03 Urine Mucus Many (Few) H 11/21/16 09:03 Ur Culture Indicated? YES (NO) A 11/21/16 09:03 Pleural Tot Nuc Cell > 1000 TNC/mcL (0-1000) H 11/23/16 15:40 Vancomycin Trough 5.3 mcg/mL (10-20) L 11/23/16 00:49 Urine Opiates Screen Positive ng/mL (Rooahi=382) H 11/21/16 09:15 Ur Amphetamines Screen Positive ng/mL (Fqqmqs=[id number]) H 11/21/16 09:15 U Benzodiazepines Scrn Positive ng/mL (Vmoffj=567) H 11/21/16 09:15 Urine Cocaine Screen Positive ng/mL (Cutoff= 300) H 11/21/16 09:15 - Clinical Findings Intake & Output: Intake & Output 11/23/16 11/23/16 11/23/16 07:59 15:59 23:59 Intake Total 1000 / 1000 Balance 1000 / 1000 Consult Discharge Plan - Plan Referrals: NO,PCP [Primary Care Provider] -
[2016-11-23] MEDS: traMADol 50 MG TABLET PO PRN (17:49)
[2016-11-24] MEDS: Ketorolac 30 MG/ML VIAL IVP PRN ×2 (00:33→17:42)
[2016-11-24] MEDS: Piperacillin/Tazobactam 3.375 GM in D5% in Water (Mini-Bag+) 100 ML IVPB SCH ×3 (00:34→17:36)
[2016-11-24] MEDS: Ipratropium/Albuterol Neb 3 ML IH SCH ×4 (03:52→22:43)
[2016-11-24] MEDS: traMADol 50 MG TABLET PO PRN (04:14)
[2016-11-24] MEDS: GuaiFENesin/Codeine Oral Soln 5 ML UDC PO PRN (04:14)
[2016-11-24] MEDS: 0.9 % Sodium Chloride 1,000 ML IVC SCH ×2 (04:38→21:24)
[2016-11-24 04:43] LABS: Basophils % 0.1 %; Eosinophils # 0.5 K/mcL (0.0-0.6); Eosinophils % 3.3 %; Hematocrit 27.1 % (35.3-44.9); Hemoglobin 8.2 g/dL (11.5-15.4); Immature Granulocytes % 1.4 % (0-4); Lymphocytes # 1.1 K/mcL (0.6-4.6); Lymphocytes % 8.1 %; Mean Corpuscular HGB Conc 30.3 g/dL (31.6-35.5); Mean Corpuscular Hemoglobin 24.3 pg (28.0-33.3); Mean Corpuscular Volume 80.4 fL (83.0-100.0); Mean Platelet Volume 8.8 fL (9.4-12.4); Monocytes % 7.2 %; Platelet Count 250 K/mcL (140-400); Red Blood Count 3.37 M/mcL (3.82-4.97); Red Cell Distribution Width 14.3 % (11.5-14.5); Segmented Neutrophils % 79.9 %
[2016-11-24 04:47] LABS: Neutrophils # 10.8 K/mcL (1.6-8.9)
[2016-11-24 04:56] LABS: Magnesium 1.3 mg/dL (1.6-2.6); Phosphorous 3.2 mg/dL (2.3-4.7)
[2016-11-24 04:59] LABS: Alanine Aminotransferase 6 Units/L (0-55); Albumin/Globulin Ratio 0.5 (1.1-2.2); Alkaline Phosphatase 60 Units/L (38-126); Aspartate Amino Transferase 12 Units/L (5-34); BUN/Creatinine Ratio 8 (6-26); Bilirubin,Total 0.2 mg/dL (0.2-1.2); Calcium 7.3 mg/dL (8.6-10.8); Carbon Dioxide 18 mEq/L (19-29); Chloride 110 mEq/L (98-109); Globulin 3.4 g/dL (2.4-3.5); Glucose 85 mg/dL (70-99); Osmolality,Calculated 277 (280-300); Potassium 3.6 mEq/L (3.5-4.5); Sodium 135 mEq/L (136-145); eGFR For African Americans > 60 (> 60); eGFR For Non-African Americans > 60 (> 60)
[2016-11-24 05:02] LABS: Platelet Estimate Normal (Normal)
[2016-11-24 05:04] LABS: Albumin 1.6 g/dL (3.5-5.0); Blood Urea Nitrogen 5 mg/dL (7-20)
[2016-11-24 06:48] LABS: Ionized Calcium 1.04 mmol/L (1.15-1.35)
[2016-11-24] MEDS: *HR* Heparin 5,000 UNIT/ML VIAL SQ SCH ×2 (06:59→17:36)
[2016-11-24] MEDS ORDERED: Calcium Gluconate 1,000 MG in D5% in Water 100 ML IVPB ONE (08:21)
[2016-11-24] MEDS ORDERED: Magnesium Sulfate 1 GM in D5% in Water 100 ML IVPB ONE (08:21)
--- NOTE | 2016-11-24 08:57 | Internal Med Progress Note ---
<Leigh Harrell - Last Filed: 11/24/16 08:55> Date of Encounter: 11/24/16 Time of Encounter: 08:55 - Assessment and plan (1) Sepsis Current Visit: Yes Status: Acute Assessment and plan: Patient has Resp>20, HR>100, fever, hypotensive, elevated white count. Lactate: 1 etiology likely secondary to bilateral pneumonia. CT chest showed trace left and moderate right pleural effusion with multifocal bilateral patchy airspace disease with areas of consolidation within the right lower lobe and lingula, consistent with pneumonia. Mediastinal bilateral hilar adenopathy present as well. Legionella, S.pneumo antigen negative. prelim blood cultures show no growth. respiratory infection panel negative. Echo normal. urine culture inconclusive. s/p right thoracentesis with 210 ml pleural fluid removed, sent for analysis. Plan: IVF sputum culture pending continue empiric antibiotic coverage with vanc, zosyn, levaquin- Day 4. pulmonology on board for recommendations. patient is refusing bronchoscopy at this time, will hold off for now if she continues to clinically improve. Will consider outpatient bronchoscopy Pleural fluid analysis shows exudative fluid, awaiting culture results. Patient may need large bore chest tube if empyema. Discussed with patient about importance of HIV testing. she refused testing upon admission but agrees to have it now. will check with morning labs. Qualifiers: Sepsis type: sepsis due to unspecified organism Qualified Code(s): A41.9 - Sepsis, unspecified organism (2) Bilateral pneumonia Current Visit: Yes Status: Suspected Assessment and plan: CT chest showed trace left and moderate right pleural effusion with multifocal bilateral patchy airspace disease with areas of consolidation within the right lower lobe and lingula. Findings compatible with pneumonia. There was also bilateral mediastinal and bilateral hilar adenopathy. Plan as above. Qualifiers: Pneumonia type: aspiration pneumonia Aspiration pneumonia type: due to gastric secretions Lung location: lower lobe of lung Qualified Code(s): J69.0 - Pneumonitis due to inhalation of food and vomit (3) Pleural effusion Current Visit: Yes Status: Acute Assessment and plan: S/p right thoracentesis today with 210ml turbid fluid aspirated. pleural effusions were multiloculated. patient tolerated procedure well. Plan: pleural fluid analysis shows exudative fluid, possible empyema. waiting for cultures to result. (4) Right flank pain Current Visit: Yes Status: Acute Assessment and plan: patient has dilaudid DUCT MAKER in place. CTA negative for PE. CT abdomen/pelvis showed no acute noncontrast abnormality. Etiology likely secondary to pneumonia and pleural effusions. (5) IV drug user Current Visit: Yes Status: Chronic Assessment and plan: Patient has extensive history of IV drug use, says she uses heroin. UDS psitive for opiates, amphetamines, benzodiazepines, cocaine. patient counseled on risks of IV drug use. Echo showed LVEF 70%, normal LV chamber size, wall thickness, and function. indeterminate diastolic function due to tachycardia, normal RV structure and function, no evidence of pulmonary hypertension, no significant valvular dysfunction, no evidence of endocarditis. (6) DVT prophylaxis Current Visit: No Status: Acute Assessment and plan: heparin SQ - Subjective Interval history: 26 year old female evaluated at bedside. patient is alert and oriented x3, in mild distress from pain. She states that she still has pain, and feels about the same as yesterday. She denies nausea, vomiting, diarrhea, fever, chills. - Constitutional Vitals: Temp Pulse Resp BP Pulse Ox 98.1 F 111 22 108/87 96 11/24/16 07:22 11/24/16 07:22 11/24/16 07:22 11/24/16 07:22 11/24/16 07:22 General appearance: Present: mild distress, A&O X 3, answers questions appropriately - Head Head exam: Present: atraumatic, normocephalic - Neck Neck exam general surgery: Present: supple, trachea midline - Respiratory Respiratory exam: Present: rales Additional comments: bilateral lower lobe rales, right upper lobe rales present as well. - Cardiovascular Cardiovascular exam: Present: tachycardia - GI/Abdominal GI/Abdominal exam: Present: normal bowel sounds, soft. Absent: distended, tenderness - Extremities Exam Extremities exam: Absent: cyanotic, pedal edema - Neurological Exam Neurological exam: Present: alert, oriented X3, no focal deficits - Psychiatric Psychiatric exam: Present: agitated, anxious - Skin Skin exam: Absent: cyanosis Additional comments: track phillip present on arms bilaterally. Internal Medicine: Result - Labs CBC & Chem 7: 11/24/16 04:30 11/24/16 04:30 Labs: Short CBC 11/24/16 Range/Units 04:30 WBC 13.5 H (4.3-11.1) K/mcL Hgb 8.2 L (11.5-15.4) g/dL Hct 27.1 L (35.3-44.9) % Plt Count 250 (140-400) K/mcL Neutrophils # 10.8 H (1.6-8.9) K/mcL BMP 11/24/16 04:30 Sodium 135 L Potassium 3.6 Chloride 110 H Carbon Dioxide 18 L BUN 5 L Creatinine 0.66 Glucose 85 Calcium 7.3 L Liver Function 11/24/16 Range/Units 04:30 Total Bilirubin 0.2 (0.2-1.2) mg/dL AST 12 (5-34) Units/L ALT 6 (0-55) Units/L Alkaline Phosphatase 60 (38-126) Units/L Albumin 1.6 L (3.5-5.0) g/dL - ABG Interpretation ABG results: PT/INR, D-dimer PT 19.4 Seconds (9.4-12.1) H 11/22/16 20:10 - Impressions Impressions Thoracentesis Ultrasound 11/23/16 00:00 IMPRESSION: Successful ultrasound guided right thoracentesis. The right pleural effusion is complex and multiloculated appearance. D/ / Tyrell Santiago MD / Tyrell Santiago MD Interpreting Provider: Tyrell Santiago MD Chest X-Ray 11/23/16 10:52 IMPRESSION: In comparison to CT from 11/21/2016, a multiloculated right pleural effusion has increased in size. No pneumothorax following right thoracentesis. Small left pleural effusion with left basilar atelectasis and/or consolidation. D/ / 11/23/2016 11:20:09 Tyrell Santiago MD / ortega Interpreting Provider: Tyrell Santiago MD Consult Discharge Plan - Plan Referrals: NO,PCP [Primary Care Provider] - <Sohail Davis - Last Filed: 11/24/16 14:07> Date of Encounter: 11/24/16 - Assessment and plan (1) Bilateral pneumonia Current Visit: Yes Status: Suspected Qualifiers: Pneumonia type: aspiration pneumonia Aspiration pneumonia type: due to gastric secretions Lung location: lower lobe of lung Qualified Code(s): J69.0 - Pneumonitis due to inhalation of food and vomit (2) Pleural effusion Current Visit: Yes Status: Acute (3) Sepsis Current Visit: Yes Status: Acute Qualifiers: Sepsis type: sepsis due to unspecified organism Qualified Code(s): A41.9 - Sepsis, unspecified organism (4) IV drug user Current Visit: Yes Status: Chronic (5) Heroin abuse Current Visit: Yes Status: Chronic (6) Microcytic anemia Current Visit: No Status: Chronic - Constitutional Vitals: Temp Pulse Resp BP Pulse Ox 98.6 F 109 18 130/79 97 11/24/16 11:30 11/24/16 11:30 11/24/16 11:30 11/24/16 11:30 11/24/16 11:30 Internal Medicine: Result - Labs CBC & Chem 7: 11/24/16 04:30 11/24/16 04:30 Labs: Short CBC 11/24/16 Range/Units 04:30 WBC 13.5 H (4.3-11.1) K/mcL Hgb 8.2 L (11.5-15.4) g/dL Hct 27.1 L (35.3-44.9) % Plt Count 250 (140-400) K/mcL Neutrophils # 10.8 H (1.6-8.9) K/mcL BMP 11/24/16 04:30 Sodium 135 L Potassium 3.6 Chloride 110 H Carbon Dioxide 18 L BUN 5 L Creatinine 0.66 Glucose 85 Calcium 7.3 L Liver Function 11/24/16 Range/Units 04:30 Total Bilirubin 0.2 (0.2-1.2) mg/dL AST 12 (5-34) Units/L ALT 6 (0-55) Units/L Alkaline Phosphatase 60 (38-126) Units/L Albumin 1.6 L (3.5-5.0) g/dL - ABG Interpretation ABG results: PT/INR, D-dimer PT 19.4 Seconds (9.4-12.1) H 11/22/16 20:10 - Impressions Impressions Chest X-Ray 11/23/16 10:52 IMPRESSION: In comparison to CT from 11/21/2016, a multiloculated right pleural effusion has increased in size. No pneumothorax following right thoracentesis. Small left pleural effusion with left basilar atelectasis and/or consolidation. D/ / 11/23/2016 11:20:09 Tyrell Santiago MD / ortega Interpreting Provider: Tyrell Santiago MD - Attending Attestation I examined this patient and my medical decision-making was reviewed with the Resident Physician on 11/24/16. I agree with the documented findings, disposition and treatment plan as described except to the extent set forth below. Ms. Montez is currently admitted with acute RLL pneumonia and effusion. She is high risk due to potential for worsening respiratory status. Ms. Montez seems to be doing a little better today. Fluid culture pending. No fever. Still with pain. Cough seems deeper. Exam Alert Heart tachy and regular Diminished sounds on R No edema I/P 1. RLL pneumonia - on IV abx. 2. Pleural effusion - s/p thoracentesis. Cx pending 3. IV drug abuse - agrees to HIV Further diagnoses and plan as above.
[2016-11-24] MEDS: Vancomycin 1,500 MG in D5% in Water 250 ML IVPB SCH (12:11)
[2016-11-24] MEDS: Levofloxacin 750 MG/150 ML 750 MG/150 ML BAG IVPB SCH ×2 (14:14→15:44)
[2016-11-25] MEDS: *HR* HYDROmorphone 20 MG/20 ML PCA IVC PRN (01:18)
[2016-11-25] MEDS: Piperacillin/Tazobactam 3.375 GM in D5% in Water (Mini-Bag+) 100 ML IVPB SCH ×3 (02:23→18:42)
[2016-11-25] MEDS: Ketorolac 30 MG/ML VIAL IVP PRN ×2 (02:24→11:30)
[2016-11-25] MEDS: Ipratropium/Albuterol Neb 3 ML IH SCH ×4 (04:03→23:10)
[2016-11-25] MEDS: *HR* Heparin 5,000 UNIT/ML VIAL SQ SCH ×2 (05:45→18:45)
[2016-11-25] MEDS: Vancomycin 1,250 MG in D5% in Water 250 ML IVPB SCH ×2 (05:51→18:42)
[2016-11-25 05:59] LABS: Basophils % 0.2 %; Eosinophils # 0.4 K/mcL (0.0-0.6); Eosinophils % 2.9 %; Hematocrit 26.7 % (35.3-44.9); Hemoglobin 8.2 g/dL (11.5-15.4); Immature Granulocytes % 2.1 % (0-4); Lymphocytes % 8.1 %; Mean Corpuscular HGB Conc 30.7 g/dL (31.6-35.5); Mean Corpuscular Hemoglobin 24.5 pg (28.0-33.3); Mean Corpuscular Volume 79.7 fL (83.0-100.0); Mean Platelet Volume 8.6 fL (9.4-12.4); Monocytes # 0.9 K/mcL (0.0-1.3); Monocytes % 7.7 %; Neutrophils # 9.5 K/mcL (1.6-8.9); Platelet Count 249 K/mcL (140-400); Red Blood Count 3.35 M/mcL (3.82-4.97); Red Cell Distribution Width 14.3 % (11.5-14.5)
[2016-11-25 06:15] LABS: Albumin/Globulin Ratio 0.4 (1.1-2.2); Alkaline Phosphatase 56 Units/L (38-126); Aspartate Amino Transferase 19 Units/L (5-34); BUN/Creatinine Ratio 8 (6-26); Bilirubin,Total 0.4 mg/dL (0.2-1.2); Blood Urea Nitrogen 9 mg/dL (7-20); Calcium 8.2 mg/dL (8.6-10.8); Carbon Dioxide 23 mEq/L (19-29); Chloride 109 mEq/L (98-109); Globulin 3.8 g/dL (2.4-3.5); Glucose 100 mg/dL (70-99); Magnesium 1.6 mg/dL (1.6-2.6); Osmolality,Calculated 287 (280-300); Potassium 3.4 mEq/L (3.5-4.5); Sodium 139 mEq/L (136-145); Total Protein 5.4 g/dL (6.0-8.3); eGFR For African Americans > 60 (> 60); eGFR For Non-African Americans 56 (> 60)
[2016-11-25 06:18] LABS: Alanine Aminotransferase < 6 Units/L (0-55); Albumin 1.6 g/dL (3.5-5.0)
[2016-11-25 06:30] LABS: Ionized Calcium 1.09 mmol/L (1.15-1.35)
[2016-11-25] MEDS ORDERED: Calcium Gluconate 2,000 MG in D5% in Water 100 ML IVPB ONE (09:43)
[2016-11-25] MEDS: 0.9 % Sodium Chloride 1,000 ML IVC SCH (11:32)
[2016-11-25] MEDS ORDERED: *HR* HYDROmorphone 20 MG/20 ML PCA IVC PRN (12:33)
--- NOTE | 2016-11-25 15:50 | Internal Med Progress Note ---
<Leigh Harrell - Last Filed: 11/25/16 15:48> Date of Encounter: 11/25/16 Time of Encounter: 09:30 - Assessment and plan (1) Sepsis Current Visit: Yes Status: Acute Assessment and plan: Patient has Resp>20, HR>100, fever, hypotensive, elevated white count. Lactate: 1 etiology likely secondary to bilateral pneumonia. CT chest showed trace left and moderate right pleural effusion with multifocal bilateral patchy airspace disease with areas of consolidation within the right lower lobe and lingula, consistent with pneumonia. Mediastinal bilateral hilar adenopathy present as well. Legionella, S.pneumo antigen negative. prelim blood cultures show no growth. respiratory infection panel negative. Echo normal. urine culture inconclusive. s/p right thoracentesis with 210 ml pleural fluid removed, sent for analysis, no acid fast bacilli observed. HIV testing nonreactive. Plan: IVF sputum culture pending continue empiric antibiotic coverage with vanc, zosyn, levaquin- Day 5. pulmonology on board for recommendations. patient is refusing bronchoscopy at this time, will hold off for now if she continues to clinically improve. Will consider outpatient bronchoscopy Pleural fluid analysis shows exudative fluid. gram stain negative, awaiting final culture results. Patient may need large bore chest tube if empyema. Qualifiers: Sepsis type: sepsis due to unspecified organism Qualified Code(s): A41.9 - Sepsis, unspecified organism (2) Bilateral pneumonia Current Visit: Yes Status: Suspected Assessment and plan: CT chest showed trace left and moderate right pleural effusion with multifocal bilateral patchy airspace disease with areas of consolidation within the right lower lobe and lingula. Findings compatible with pneumonia. There was also bilateral mediastinal and bilateral hilar adenopathy. Plan as above. Qualifiers: Pneumonia type: aspiration pneumonia Aspiration pneumonia type: due to gastric secretions Lung location: lower lobe of lung Qualified Code(s): J69.0 - Pneumonitis due to inhalation of food and vomit (3) Pleural effusion Current Visit: Yes Status: Acute Assessment and plan: S/p right thoracentesis with 210ml turbid fluid aspirated. pleural effusions were multiloculated. patient tolerated procedure well. Plan: pleural fluid analysis shows exudative fluid, possible empyema. waiting for cultures to result. 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 CTA negative for PE. CT abdomen/pelvis showed no acute noncontrast abnormality. Etiology likely secondary to pneumonia and pleural effusions. (5) IV drug user Current Visit: Yes Status: Chronic Assessment and plan: Patient has extensive history of IV drug use, says she uses heroin. UDS positive for opiates, amphetamines, benzodiazepines, cocaine. patient counseled on risks of IV drug use. Echo showed LVEF 70%, normal LV chamber size, wall thickness, and function. indeterminate diastolic function due to tachycardia, normal RV structure and function, no evidence of pulmonary hypertension, no significant valvular dysfunction, no evidence of endocarditis. (6) DVT prophylaxis Current Visit: No Status: Acute Assessment and plan: heparin SQ - Subjective Interval history: 26 year old female evaluated at bedside. patient is alert and oriented x3, in mild distress. her breathing and cough have improved, she has no new complaints today. - Constitutional Vitals: Temp Pulse Resp BP Pulse Ox 98.3 F 100 18 122/67 95 11/25/16 15:31 11/25/16 15:31 11/25/16 15:31 11/25/16 15:31 11/25/16 15:31 General appearance: Present: mild distress, A&O X 3, answers questions appropriately - Head Head exam: Present: atraumatic, normocephalic - Neck Neck exam general surgery: Present: supple, trachea midline - Respiratory Additional comments: RUL and RLL rales present. - Cardiovascular Cardiovascular exam: Present: tachycardia - GI/Abdominal GI/Abdominal exam: Present: normal bowel sounds, soft. Absent: diminished bowel sounds, tenderness - Extremities Exam Extremities exam: Absent: cyanotic, pedal edema - Neurological Exam Neurological exam: Present: alert, oriented X3 - Psychiatric Psychiatric exam: Present: agitated, anxious Internal Medicine: Result - Labs CBC & Chem 7: 11/25/16 05:44 11/25/16 05:44 Labs: Short CBC 11/25/16 Range/Units 05:44 WBC 12.0 H (4.3-11.1) K/mcL Hgb 8.2 L (11.5-15.4) g/dL Hct 26.7 L (35.3-44.9) % Plt Count 249 (140-400) K/mcL Neutrophils # 9.5 H (1.6-8.9) K/mcL BMP 11/25/16 05:44 Sodium 139 Potassium 3.4 L Chloride 109 Carbon Dioxide 23 BUN 9 Creatinine 1.16 H D Glucose 100 H Calcium 8.2 L Liver Function 11/25/16 Range/Units 05:44 Total Bilirubin 0.4 (0.2-1.2) mg/dL AST 19 (5-34) Units/L ALT < 6 (0-55) Units/L Alkaline Phosphatase 56 (38-126) Units/L Albumin 1.6 L (3.5-5.0) g/dL - ABG Interpretation ABG results: PT/INR, D-dimer PT 19.4 Seconds (9.4-12.1) H 11/22/16 20:10 Consult Discharge Plan - Plan Referrals: NO,PCP [Primary Care Provider] - <Sohail Davis - Last Filed: 11/25/16 17:44> Date of Encounter: 11/25/16 - Assessment and plan (1) Bilateral pneumonia Current Visit: Yes Status: Suspected Qualifiers: Pneumonia type: aspiration pneumonia Aspiration pneumonia type: due to gastric secretions Lung location: lower lobe of lung Qualified Code(s): J69.0 - Pneumonitis due to inhalation of food and vomit (2) Pleural effusion Current Visit: Yes Status: Acute (3) Sepsis Current Visit: Yes Status: Acute Qualifiers: Sepsis type: sepsis due to unspecified organism Qualified Code(s): A41.9 - Sepsis, unspecified organism (4) IV drug user Current Visit: Yes Status: Chronic (5) Heroin abuse Current Visit: Yes Status: Chronic (6) Microcytic anemia Current Visit: No Status: Chronic - Constitutional Vitals: Temp Pulse Resp BP Pulse Ox 98.3 F 100 18 122/67 95 11/25/16 15:31 11/25/16 15:31 11/25/16 15:31 11/25/16 15:31 11/25/16 15:31 Internal Medicine: Result - Labs CBC & Chem 7: 11/25/16 05:44 11/25/16 05:44 Labs: Short CBC 11/25/16 Range/Units 05:44 WBC 12.0 H (4.3-11.1) K/mcL Hgb 8.2 L (11.5-15.4) g/dL Hct 26.7 L (35.3-44.9) % Plt Count 249 (140-400) K/mcL Neutrophils # 9.5 H (1.6-8.9) K/mcL BMP 11/25/16 05:44 Sodium 139 Potassium 3.4 L Chloride 109 Carbon Dioxide 23 BUN 9 Creatinine 1.16 H D Glucose 100 H Calcium 8.2 L Liver Function 11/25/16 Range/Units 05:44 Total Bilirubin 0.4 (0.2-1.2) mg/dL AST 19 (5-34) Units/L ALT < 6 (0-55) Units/L Alkaline Phosphatase 56 (38-126) Units/L Albumin 1.6 L (3.5-5.0) g/dL - ABG Interpretation ABG results: PT/INR, D-dimer PT 19.4 Seconds (9.4-12.1) H 11/22/16 20:10 - Attending Attestation I examined this patient and my medical decision-making was reviewed with the Resident Physician on . I agree with the documented findings, disposition and treatment plan as described except to the extent set forth below. Ms. Montez is currently admitted for acute pneumonia with effusion. She remains high risk due to potential for worsening respiratory status. Ms. Montez has been resting more comfortably. Pain appears controlled. No fever or chills. Exam Alert. Comfortable Heart still tachy but better Decreased breath sounds. I/P 1. Pneumonia 2. Effusion Further diagnoses and plan as above.
[2016-11-26] MEDS: Ketorolac 30 MG/ML VIAL IVP PRN (03:27)
[2016-11-26] MEDS ORDERED: Acetaminophen 325 MG TABLET PO PRN (03:56)
[2016-11-26] MEDS: Ipratropium/Albuterol Neb 3 ML IH SCH ×2 (04:20→10:21)
[2016-11-26] MEDS: *HR* Heparin 5,000 UNIT/ML VIAL SQ SCH ×2 (05:11→15:58)
[2016-11-26] MEDS: Vancomycin 1,250 MG in D5% in Water 250 ML IVPB SCH (05:14)
[2016-11-26] MEDS: Piperacillin/Tazobactam 3.375 GM in D5% in Water (Mini-Bag+) 100 ML IVPB SCH ×3 (08:11→15:55)
[2016-11-26] MEDS ORDERED: Ipratropium/Albuterol Neb 3 ML IH PRN (10:27)
[2016-11-26] MEDS: Levofloxacin 750 MG/150 ML 750 MG/150 ML BAG IVPB SCH (12:32)
--- NOTE | 2016-11-26 15:27 | Internal Med Progress Note ---
<Madison Estrada - Last Filed: 11/26/16 15:25> Date of Encounter: 11/26/16 Time of Encounter: 15:20 - Assessment and plan (1) Sepsis Current Visit: Yes Status: Acute Assessment and plan: Patient has Resp>20, HR>100, fever, hypotensive, elevated white count. Lactate: 1 etiology likely secondary to bilateral pneumonia. CT chest showed trace left and moderate right pleural effusion with multifocal bilateral patchy airspace disease with areas of consolidation within the right lower lobe and lingula, consistent with pneumonia. Mediastinal bilateral hilar adenopathy present as well. Legionella, S.pneumo antigen negative. prelim blood cultures show no growth. respiratory infection panel negative. Echo normal. urine culture inconclusive. s/p right thoracentesis with 210 ml pleural fluid removed, sent for analysis, no acid fast bacilli observed. HIV testing nonreactive. Plan: IVF sputum culture negative continue empiric antibiotic coverage with Zosyn, Levaquin- Day 6. [facility] pulmonology on board for recommendations. patient is refusing bronchoscopy at this time, will hold off for now if she continues to clinically improve. Will consider outpatient bronchoscopy Pleural fluid analysis shows exudative fluid. gram stain negative, AFB negative. Qualifiers: Sepsis type: sepsis due to unspecified organism Qualified Code(s): A41.9 - Sepsis, unspecified organism (2) Bilateral pneumonia Current Visit: Yes Status: Suspected Assessment and plan: CT chest showed trace left and moderate right pleural effusion with multifocal bilateral patchy airspace disease with areas of consolidation within the right lower lobe and lingula. Findings compatible with pneumonia. There was also bilateral mediastinal and bilateral hilar adenopathy. 2-V CXR ordered for 11/27/16 Qualifiers: Pneumonia type: aspiration pneumonia Aspiration pneumonia type: due to gastric secretions Lung location: lower lobe of lung Qualified Code(s): J69.0 - Pneumonitis due to inhalation of food and vomit (3) Pleural effusion Current Visit: Yes Status: Acute Assessment and plan: 11/23 S/p right thoracentesis with 210ml turbid fluid aspirated. pleural effusions were multiloculated. patient tolerated procedure well. 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 CTA negative for PE. CT abdomen/pelvis showed no acute noncontrast abnormality. Etiology likely secondary to pneumonia and pleural effusions. (5) IV drug user Current Visit: Yes Status: Chronic Assessment and plan: Patient has extensive history of IV drug use, says she uses heroin. UDS positive for opiates, amphetamines, benzodiazepines, cocaine. patient counseled on risks of IV drug use. Echo showed LVEF 70%, normal LV chamber size, wall thickness, and function. indeterminate diastolic function due to tachycardia, normal RV structure and function, no evidence of pulmonary hypertension, no significant valvular dysfunction, no evidence of endocarditis. Patient would decline outpatient drug rehab. (6) DVT prophylaxis Current Visit: No Status: Acute Assessment and plan: heparin SQ - Subjective Interval history: Pt seen/eval at bedside. She would report reluctance with lab draws due to multiple sticks. Endorses pleuritic discomfort, controlled on current pain regimen. Denies LUTS, no fever, chills, nvd. Tolerating PO intake. - Constitutional Vitals: Temp Pulse Resp BP Pulse Ox 98 F 87 16 91/74 97 11/26/16 07:27 11/26/16 07:27 11/26/16 07:27 11/26/16 07:27 11/26/16 07:27 General appearance: Present: mild distress, A&O X 3, answers questions appropriately - Head Head exam: Present: atraumatic, normocephalic - Eye Eye exam: Present: EOMI, sclera anicteric - ENT ENT exam: Present: mucous membranes moist - Neck Neck exam general surgery: Present: trachea midline - Respiratory Respiratory exam: Present: decreased breath sounds (RLL), rhonchi (scant). Absent: wheezes - Cardiovascular Cardiovascular exam: Present: +S1, +S2. Absent: JVD - GI/Abdominal GI/Abdominal exam: Present: soft, no peritoneal signs. Absent: tenderness - Extremities Exam Extremities exam: Present: radial pulses palpable and symetrical. Absent: pedal edema Internal Medicine: Result - Labs CBC & Chem 7: 11/25/16 05:44 11/25/16 05:44 - ABG Interpretation ABG results: PT/INR, D-dimer PT 19.4 Seconds (9.4-12.1) H 11/22/16 20:10 Consult Discharge Plan - Plan Referrals: NO,PCP [Primary Care Provider] - <Sohail Davis A - Last Filed: 11/26/16 18:21> Date of Encounter: 11/26/16 - Assessment and plan (1) Bilateral pneumonia Current Visit: Yes Status: Suspected Qualifiers: Pneumonia type: aspiration pneumonia Aspiration pneumonia type: due to gastric secretions Lung location: lower lobe of lung Qualified Code(s): J69.0 - Pneumonitis due to inhalation of food and vomit (2) Pleural effusion Current Visit: Yes Status: Acute (3) Sepsis Current Visit: Yes Status: Acute Qualifiers: Sepsis type: sepsis due to unspecified organism Qualified Code(s): A41.9 - Sepsis, unspecified organism (4) IV drug user Current Visit: Yes Status: Chronic (5) Heroin abuse Current Visit: Yes Status: Chronic (6) Microcytic anemia Current Visit: No Status: Chronic - Constitutional Vitals: Temp Pulse Resp BP Pulse Ox 99.3 F 90 16 116/73 96 11/26/16 15:24 11/26/16 15:24 11/26/16 15:24 11/26/16 15:24 11/26/16 15:24 Internal Medicine: Result - Labs CBC & Chem 7: 11/25/16 05:44 11/25/16 05:44 - ABG Interpretation ABG results: PT/INR, D-dimer PT 19.4 Seconds (9.4-12.1) H 11/22/16 20:10 - Attending Attestation I examined this patient and my medical decision-making was reviewed with the Resident Physician on 11/26/16. I agree with the documented findings, disposition and treatment plan as described except to the extent set forth below. Ms. Montez is currently admitted for acute pneumonia with effusion. She is moderate to high risk due to potential for worsening respiratory status. Ms. Montez is doing better overall. She still complains about pain and is upset that Toradol had to be stopped. Refused labs this AM. Less cough. No fever. Heart rate better. Exam Alert Comfortable Heart reg - not tachy Decreased breath sounds I/P 1. Probable asp pneumonia - recheck CXR in AM 2. Recheck labs in AM 3. Wean pain meds as able Further diagnoses and plan as above.
[2016-11-26] MEDS ORDERED: Ibuprofen 400 MG TABLET PO ONE (15:52)
[2016-11-27] MEDS: Piperacillin/Tazobactam 3.375 GM in D5% in Water (Mini-Bag+) 100 ML IVPB SCH ×2 (01:47→07:06)
[2016-11-27] MEDS: *HR* Heparin 5,000 UNIT/ML VIAL SQ SCH (04:20)
[2016-11-27] MEDS ORDERED: Ondansetron 4 MG/2 ML VIAL IVP ONE (04:32)
[2016-11-27 06:50] VITALS: BP 124/74
[2016-11-27] MEDS: 0.9 % Sodium Chloride 1,000 ML IVC SCH (06:56)
--- NOTE | 2016-11-27 11:08 | Discharge Summary ---
<Madison Estrada - Last Filed: 11/27/16 11:03> Date of Encounter: 11/27/16 Time of Encounter: 11:00 - Discharge Diagnosis (1) Sepsis Priority: Primary Status: Acute Qualifiers: Sepsis type: sepsis due to unspecified organism Qualified Code(s): A41.9 - Sepsis, unspecified organism (2) Bilateral pneumonia Priority: Primary Status: Suspected Qualifiers: Pneumonia type: aspiration pneumonia Aspiration pneumonia type: due to gastric secretions Lung location: lower lobe of lung Qualified Code(s): J69.0 - Pneumonitis due to inhalation of food and vomit (3) Pleural effusion Priority: Secondary Status: Acute (4) Right flank pain Priority: Secondary Status: Acute (5) IV drug user Priority: Primary Status: Chronic (6) DVT prophylaxis Priority: Secondary Status: Acute - Discharge Medications Prescriptions: Amoxicillin/Clavulanate [Augmentin] 875 mg PO BIDWM #20 tablet Cyclobenzaprine [Flexeril] 10 mg PO TID PRN #30 tablet PRN Reason: Spasms Docusate [Colace] 100 mg PO BID #40 capsule Doxycycline 100 mg PO BID #20 capsule GuaiFENesin/Codeine [ROBITUSSIN w/CODEINE] 5 ml PO Q4H PRN #30 udc PRN Reason: Cough Oxycodone HCl/Acetaminophen [Percocet 5-325 mg Tablet] 1 each PO Q6H PRN #12 tablet PRN Reason: Pain Home Medications: Amoxicillin/Clavulanate [Augmentin] 875 mg PO BIDWM #20 tablet 11/27/16 [Rx] Cyclobenzaprine [Flexeril] 10 mg PO TID PRN #30 tablet 11/27/16 [Rx] Docusate [Colace] 100 mg PO BID #40 capsule 11/27/16 [Rx] Doxycycline 100 mg PO BID #20 capsule 11/27/16 [Rx] GuaiFENesin/Codeine [ROBITUSSIN w/CODEINE] 5 ml PO Q4H PRN #30 udc 11/27/16 [Rx] Oxycodone HCl/Acetaminophen [Percocet 5-325 mg Tablet] 1 each PO Q6H PRN #12 tablet 11/27/16 [Rx] Allergies/Adverse Reactions: Allergies No Known Allergies Allergy (Verified 11/21/16 12:40) Procedures/tests Complete & Pending: Procedures Performed prior 72 hours Category Date Time Status CT chest wo con [CT] Urgent Cat Scan 11/27/16 10:38 Stop Req Date of admission: 11/21/16 16:26 Primary care physician: PCP NO Consults: 11/22/16 10:17 Consult to Sales And Marketing Coordinator [CONS] Routine Reason for SW Consult: Discharge needs 11/22/16 13:56 Consult to Pulmonology [CONS] Routine Consulting Provider: [facility] Reason for Consult: bilateral pneumonia, IV drug user, may need possible bronch. Call Completed: Yes 11/22/16 14:23 Consult to Interventional Radiology [CONS] Routine Consulting Provider: Radiology Interventional [facility] Reason for Consult: thoracentesis Time Notified: 14:24 Call Completed: Yes Discharging clinician: Sohail Davis Anticipated date of discharge: 11/27/16 - Patient Status Disposition: Left Against Medical Advice Condition: Fair Functional capacity at discharge: independent ambulation Overall status at discharge: patient is not back to baseline - Discharge Instructions Follow Up With: NO,PCP [Primary Care Provider] - Yolis Humphreys MD [Partnered Physician] - (in 2-3 weeks, R sided empyema) - Diet and Activity Activity: increase activity as tolerated Diet: advance to your usual diet Hospital course: Ms. Montez is a 26 year old female. Patient would present to [facility] with chief concern: right-sided pleurisy with back pain. This was accompanied by leukocytosis, tachycardia, and workup disclosing right- sided pleural effusion suggestive of sepsis with pneumonia. Comorbidities include: current IV drug abuse with heroin, anxiety, depression. Hospital course: She would undergo fluid resuscitation, peripheral blood cultures drawn, started on broad-spectrum antibiotics. UDS on admission positive for opiates, amphetamines, benzodiazepines, cocaine. Workup urine culture grossly contaminated, peripheral cultures negative. Strep and Legionella antigen negative. Respiratory infectious panel negative. Due to IV drug abuse with complicated effusion, prompted concern for possible HIV. HIV drawn, nonreactive. Imaging studies disclosed: Abdomen/Pelvis CT 11/21/16 08:44 IMPRESSION: No acute noncontrast abnormality of the abdomen or pelvis. Moderate right pleural effusion with multifocal bibasilar consolidation, some which is masslike. There is also moderate right hilar and mediastinal adenopathy. The findings are most suggestive of pneumonia most compatible with pneumonia. Follow-up to complete resolution is recommended to exclude the possibility of neoplasm. Chest CT 11/21/16 09:59 IMPRESSION: Trace left and moderate right pleural effusion as above with multifocal bilateral patchy airspace disease with areas of consolidation within the right lower lobe and lingula. Findings are most compatible with pneumonia. Follow-up to resolution is recommended. Mediastinal and bilateral hilar adenopathy, likely reactive. Again, follow-up is recommended. Chest CTA 11/21/16 13:58 IMPRESSION: No CT evidence pulmonary embolism. Several stable intrathoracic findings since the study performed earlier today showing mediastinal and right hilar adenopathy as well as a trace left and moderate partially loculated right pleural effusions. Multifocal bilateral airspace disease is again identified with consolidative changes within the left lower lobe and lingula. Thoracentesis Ultrasound 11/23/16 00:00 IMPRESSION: Successful ultrasound guided right thoracentesis. The right pleural effusion is complex and multiloculated appearance. Echo disclosed EF 70%, no evidence pulm HTN, no significant valvular dysfunction , no evidence of endocarditis on this study. Pulmonology consult for the loculated pleural effusion. Patient would refuse bronchoscopy. She would undergo thoracentesis US-guided on 11/23/16, with report turbid fluid, exudative per Light's criteria, pH <6.8 to suggest empyema. Pleural fluid culture would not grow any organisms. Patient improved clinically, with leukocytosis improved from 23,000 on admission to 12,000 on 11/25/16. Patient on 11/26 would decline further lab draws and refuse further intervention including repeat offers of bronchoscopy. She would refuse insertion of a chest tube for the loculated pleural effusion/empyema. On 11/27, patient would refuse lab draws. An interval CXR would disclose: Chest X-Ray 11/27/16 06:00 IMPRESSION: 1. Essentially stable size of the right moderate-large loculated effusion which now has a more loculated component at the superolateral aspect. Stable right lung consolidation. 2. Stable mild-moderate left effusion and bibasilar consolidation. Patient declined further treatment. She would have repeat fever 100.6 overnight of 11/26. We explained the treatment plan, including continuing IV antibiotics, further intervention with chest tube or bronchoscopy for further evaluation. Counseled that refusal to undergo treatment may result in worsening pneumonia, organ failure, and . She is at high risk of clinical deterioration without further treatment. The patient voiced understanding and insisted on leaving against medical advice. She signed papers attesting to the same. Patient was advised to seek immediate medical attention for any new or worsening symptoms including but not limited to fever, chills, chest pain, chest pressure, dyspnea, cough, abdominal pain, nausea, vomiting, diarrhea, bloody stool, urine and the patient voiced understanding. While she has IV drug use history, she has significant pleurisy from empyema and loculated pleural effusion. Additionally, she has been requiring narcotic pain regimen to control her pain during her hospitalization. Also concern for precipitating withdrawal. Patient will have limited percocet #12 for control of pleuritic pain. Without bronchoscopy and possible chest tube, there is no source control of the empyema. I am sending her home on Augmentin and Doxycycline course for 10 more days, but it is likely not adequate for complete treatment of her pneumonia. This was explained and she voiced understanding. I strongly advised the patient against leaving AMA, and to return for worsening symptoms. [facility] reviewed discloses no prior prescribed scheduled medications. Aware that patient has history of IV drug abuse. Her significant empyema with pleuritic pain and concern for precipitating withdrawals warrants a limited supply of oral narcotics for her pain. NSAIDs are not advised given her worsening renal function. - Time Spent with Patient Total time spent providing and/or coordinating discharge services: Greater than 30 minutes - Constitutional Vitals: Temp Pulse Resp BP Pulse Ox 99.3 F 102 18 124/74 97 11/27/16 06:48 11/27/16 06:48 11/27/16 06:48 11/27/16 06:48 11/27/16 06:48 General appearance: Present: A&O X 3, answers questions appropriately - Head Head exam: Present: atraumatic, normocephalic - Eye Eye exam: Present: EOMI, sclera anicteric - ENT ENT exam: Present: mucous membranes moist - Neck Neck exam general surgery: Present: supple, trachea midline. Absent: nuchal rigidity - Respiratory Respiratory exam: Present: decreased breath sounds (RML levy, increased egophony), rhonchi (RML). Absent: accessory muscle use, wheezes - Cardiovascular Cardiovascular exam: Present: +S1, +S2. Absent: JVD - GI/Abdominal GI/Abdominal exam: Present: soft, no peritoneal signs. Absent: tenderness - Extremities Exam Extremities exam: Present: warm, radial pulses palpable and symetrical. Absent : mottling, pedal edema - Neurological Exam Neurological exam: Present: no focal deficits, strengths equal and symetr throughout <Sohail Davis - Last Filed: 11/27/16 18:20> Date of Encounter: 11/27/16 - Discharge Diagnosis (1) Bilateral pneumonia Status: Suspected Qualifiers: Pneumonia type: aspiration pneumonia Aspiration pneumonia type: due to gastric secretions Lung location: lower lobe of lung Qualified Code(s): J69.0 - Pneumonitis due to inhalation of food and vomit (2) Pleural effusion Status: Acute (3) Sepsis Status: Acute Qualifiers: Sepsis type: sepsis due to unspecified organism Qualified Code(s): A41.9 - Sepsis, unspecified organism (4) IV drug user Status: Chronic (5) Heroin abuse Priority: Secondary Status: Chronic (6) Microcytic anemia Priority: Secondary Status: Chronic Date of admission: 11/21/16 16:26 Primary care physician: PCP NO Consults: 11/22/16 10:17 Consult to Sales And Marketing Coordinator [CONS] Routine Reason for SW Consult: Discharge needs 11/22/16 13:56 Consult to Pulmonology [CONS] Routine Consulting Provider: [facility] Reason for Consult: bilateral pneumonia, IV drug user, may need possible bronch. Call Completed: Yes 11/22/16 14:23 Consult to Interventional Radiology [CONS] Routine Consulting Provider: Radiology Interventional [facility] Reason for Consult: thoracentesis Time Notified: 14:24 Call Completed: Yes Hospital course: Ms. Montez is a 26 year old female - Time Spent with Patient Total time spent providing and/or coordinating discharge services: 38min - Constitutional Vitals: Temp Pulse Resp BP Pulse Ox 99.3 F 102 18 124/74 97 11/27/16 06:48 11/27/16 06:48 11/27/16 06:48 11/27/16 06:48 11/27/16 06:48 - Attending Attestation I examined this patient and my medical decision-making was reviewed with the Resident Physician on 11/27/16. I agree with the documented findings, disposition and treatment plan as described except to the extent set forth below. Ms. Montez has been admitted for acute pneumonia with effusion. She had fever last night again. This AM she had repeat CXR . CT chest ordered due to persistent effusion. She refused. 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 She has not been allowed to be unsupervised in shower due to concern of her self injecting. There has been concern by staff that she is using illicit substances in hospital. At this point she has elected to sign out AMA. She has been explained the risk of not completing work up and treatment but wants to leave. She was given abx scripts at discharge. She was also given cough syrup, muscle relaxant and small script of Percocet. I am aware that she may divert the narcotics but has reason for legitimate pain and I feel I need to give her a small amount of pain meds. Exam Alert. Agitated No wheeze heart reg
[2016-11-27] MEDS ORDERED: Aminoglycoside Consult 1 EACH MC ONE (11:14)
[2016-11-27] MEDS ORDERED: levoFLOXacin 750 MG TABLET PO SCH (13:00)
== END 2016-11-27 11:15 | disposition left against medical advice (07) | DRG 720 ==
LOC: EMEROO 07:04 → 3BNU 07:04 → SUATTDRO 12:35 → 2NENU 13:15
PROVIDERS: ADMIT Internal Medicine Endocrinology, Diabetes & Metabolism; ATTEND Internal Medicine